=== PATIENT | female | born 1975 | race African-American/Black ===

== ENCOUNTER 2018-12-28 20:12 | Inpatient (IN) ==
[2018-12-28 20:24] VITALS: BMI 37.0
[2018-12-28] MEDS ORDERED: NITROSTAT SL PRN (20:50)
[2018-12-28] MEDS ORDERED: PEPCID TAB 20 MG PO ONE (20:50)
[2018-12-28] MEDS ORDERED: ASPIRIN PO ONE (20:50)
--- NOTE | 2018-12-28 20:50 | DR.SOBA ---
HPI - Time Seen Time seen: 20:46 - Primary Care Physician Primary Care Physician: NFD - Complaints Chief Complaint Doctors Comments: Patient complains of chest pain with SOB for three weeks getting progressively worst today. States she is having sharp xiphoid and left sided chest pain that comes and goes and last about four minutes when she has the pain. She is a patient of Dr. Jarquin and states she is taking Lisinopril for her blood pressure and was suppose to be taking catapres but she cannot afford her medicines. She is complaining of SOB and GARCIA. She denies cold, cough, fever, chills, nausea or vomiting. Chief Complaint:: SHORTNESS OF BREATH AND CHEST PAIN TO LEFT ARM X 1 WEEK; PATIENT STATES SHE IS SUPPOSED TO TAKE LISINOPRIL 20MG BID AND CLONIDINE BUT HAS BEEN NON-COMPLIANT. Self Treatment fo Chief Complaint: NONE - Reviewed Nurses Notes Reviewed: Yes - Source History Provided: Patient - Mode of Arrival Mode of Arrival: Ambulatory - Timing Onset of Chief Complaint: 12/21/18 - Duration Duration: Weeks - Context Onset:: At Rest PE Risk Factors:: None History of:: None Prehospital Care:: None - Modifying Factors Worsens:: Exertion Improves:: Nothing - Associated Signs and Symptoms Associated Signs and Symptoms: None - If Chest Pain Quality: Sharp, Squeezing Location: Substernal - If Cough Cough: None PMH - PMH Past Medical History: Yes Past Medical History: CHF Past Surgical History: Yes Surgical History: - Family History History of Family Medical Conditions: No Family Medical History: Diabetes Mellitus, Hypertension - Social History Does patient currently use any type of tobacco product: No Have you used tobacco products in the last 12 months: No Type of Tobacco Use: None Do you use any recreational Drugs:: No Lives With: Other Lives Where: Home - infectious screening In the last 2 months have you had wt loss of >10#?: NO Have you had fever, night sweats or hemotysis?: No Have you traveled outside the country in the last 6 months?: No Isolation: Standard ROS - Review of Systems Constitutional: No Symptoms Reported Eyes: No Symptoms Reported ENTM: No Symptoms Reported Respiratoy: No Symptoms Reported, Non-Productive Cough, Short of Breath Cardiovascular: No Symptoms Reported, Chest Pain. negative: See HPI, Edema, Palpitations, Syncope, Cyanosis, Skin Mottling, Other Gastrointestinal/Abdominal: No Symptoms Reported Genitourinary: No Symptoms Reported. negative: See HPI, Discharge, Dysuria, Frequency, Hematuria, Pain, Bleeding, Other Neurological: No Symptoms Reported Musculoskeletal: No Symptoms Reported Integumentary: No Symptoms Reported Hematologic/Lymphatic: No Symptoms Reported Endocrine: No Symptoms Reported Psychiatric: No Symptoms Reported PE - General Limitations: No Limitations General Appearance: Alert, In Distress (slight) - Head Head Exam: Normal Inspection, Atraumatic, Normocephalic - Eyes Eye exam: Normal Appearance, PERRL, EOMI. negative: Scleral Icterus, Conjunctival Injection, Nystagmus, Miosis, Mydrasis, Periorbital Swelling, Periorbital Tenderness, Other - ENT ENT Exam: Normal Exam, Normal Oropharynx, Normal External Ear Exam, Mucous Membranes Moist, TM's Normal Bilaterally - Neck Neck Exam: Normal Inspection, Full ROM, Trachea Midline. negative: Tenderness, Meningismus, Lymphadenopathy, Thyromegaly, Other - Chest Chest Inspection: Normal Inspection, Symmetric Chest Wall Rise - Respiratory Respiratory Exam: Normal Lung Sounds Bilat Respiratory Exam: Bilateral Clear to Auscultation - Cardiovascular Cardiovascular Exam: Regular Rate, Normal Rhythm, Normal Heart Sounds - Abdominal Exam Abdominal Exam: Normal Inspection, Normal Bowel Sounds, Soft Abdominal Tenderness: negative: RUQ, RLQ, LUQ, LLQ, Epigastrium, Suprapubic, Diffuse, Mild, Moderate, Severe, Other - Extremities Extremities Exam: Normal Inspection, Full ROM, Normal Capillary Refill. negative: Tenderness, Edema, Joint Swelling, Calf Tenderness, Other - Back Back Exam: Normal Inspection, Full ROM. negative: Tenderness, (R) CVA Tenderness, (L) CVA Tenderness, Muscle Spasm, Paraspinal Tenderness, Vertebral Tenderness, Rashes, (R) Sciatic Notch Tenderness, (L) Sciatic Notch Tendern, (R) Straight Leg Raise, (L) Straight Leg Raise, Other - Neurologic Neurological Exam: Alert, Oriented X3, CN II-XII Intact, Normal Gait, Reflexes Normal - Psychiatric Psychiatric Exam: Normal Affect, Normal Mood. negative: Depressed, Agitated, Anxious, Flat Affect, Manic, Homicidal Ideation, Suicidal Ideation, Other - Skin Skin Exam: Warm, Dry, Intact, Normal Color - Vital Signs Vitals: Temperature 99.4 F Pulse Rate 91 Respiratory Rate 24 Blood Pressure [Left Arm] 158/87 Blood Pressure [Right Arm] 162/91 Blood Pressure 165/77 O2 Sat by Pulse Oximetry 100 Course - Consultation Called: 22:42 Call Returned: 22:42 (Dr. Li to admit) - Education/Counseling Education/Counseling: Patient, Family Educated On: Treatment, Diagnosis, Needs for Follow Up ROR - Labs Reviewed Laboratory Results Reviewed?: Yes (All labs and x-ray results reviewed and discussed with patient and family) Result Diagrams: 12/28/18 20:53 12/28/18 20:53 - XRAY XRAY Interpreted by: Radiologist (CXR: Cardiomegaly without other acute chest process) - EKG Rate: 92 [place]: Normal Rhythm: NSR Block: None Hypertrophy: None ST: Nonsp - Labs Reviewed Laboratory: WBC 10.6 X10^3/uL (3.6-10.0) H 12/28/18 20:53 RBC 4.30 X10^6/uL (3.5-5.4) 12/28/18 20:53 Hgb 5.4 g/dL (12.0-16.0) L* 12/28/18 20:53 Hct 20.9 % (36.0-47.0) L 12/28/18 20:53 MCV 49.3 fL (80.0-100.0) L 12/28/18 20:53 MCH 12.6 pg (27.0-34.0) L 12/28/18 20:53 MCHC 25.5 g/dL (33.0-35.0) L 12/28/18 20:53 RDW 22.9 % (11.6-16.5) H 12/28/18 20:53 Plt Count 459 X10^3/uL (150.0-450.0) H 12/28/18 20:53 Plt Count Comment Increased (ADEQUATE) A 12/28/18 20:53 MPV 8.8 fL (7.4-11.0) 12/28/18 20:53 Neut % (Auto) 70.4 % (42.0-75.0) 12/28/18 20:53 Lymph % (Auto) 22.8 % (21.0-51.0) 12/28/18 20:53 [place] % (Auto) 4.3 % (0.0-13.0) 10/05/19 20:53 Eos % (Auto) 1.5 % (0.9-2.9) 12/28/18 20:53 Baso % (Auto) 1.0 % (0.2-1.0) 12/28/18 20:53 Neut # (Auto) 7.4 x10^3/uL (2.2-4.8) H 12/28/18 20:53 Lymph # (Auto) 2.4 X10^3/uL (1.3-2.9) 12/28/18 20:53 [place] # (Auto) 0.5 x10^3/uL (0.3-0.8) 12/28/18 20:53 Eos # (Auto) 0.2 x10^3/uL (0.0-0.2) 12/28/18 20:53 Baso # (Auto) 0.1 X10^3/uL (0.0-0.1) 12/28/18 20:53 Absolute Nucleated RBC 0.2 /100WBC 12/28/18 20:53 Plt Morphology Comment Normal (NORMAL) 12/28/18 20:53 RBC Morphology Abnormal (NORMAL) A 12/28/18 20:53 Dimorphic RBCs 2+ 12/28/18 20:53 Hypochromasia 3+ A 12/28/18 20:53 Poikilocytosis 2+ A 12/28/18 20:53 Anisocytosis 2+ A 12/28/18 20:53 PT 14.0 SECONDS (11.8-14.3) 12/28/18 20:53 INR Target Range - 12/28/18 20:53 INR 1.12 (0.8-1.3) 12/28/18 20:53 APTT 28.0 SECONDS (22.9-36.5) 12/28/18 20:53 PTT Comment - 12/28/18 20:53 D-Dimer 219 ng/mL (0-400) 12/28/18 20:53 Sodium 141 mmol/L (136-145) 12/28/18 20:53 Corrected Sodium 142 mmol/L (136-145) 12/28/18 20:53 Potassium 2.8 mmol/L (3.5-5.1) L* 12/28/18 20:53 Chloride 103 mmol/L (98-107) 12/28/18 20:53 Carbon Dioxide 24.8 mmol/L (21-32) 12/28/18 20:53 BUN 13 mg/dL (7-18) 12/28/18 20:53 Creatinine 0.81 mg/dL (0.55-1.02) 12/28/18 20:53 Est GFR (MDRD) Af Amer > 60 (>60) 12/28/18 20:53 Est GFR (MDRD) Non-Af > 60 (>60) 12/28/18 20:53 Glucose 155 mg/dL (65-99) H 12/28/18 20:53 Calcium 8.9 mg/dL (8.5-10.1) 12/28/18 20:53 Corrected Calcium TNP 12/28/18 20:53 Magnesium 1.6 mg/dL (1.7-2.9) L 12/28/18 20:53 Total Bilirubin 0.50 mg/dL (0.2-1.0) 12/28/18 20:53 AST 9 Units/L (15-37) L 12/28/18 20:53 ALT 12 Units/L (12-78) 12/28/18 20:53 Alkaline Phosphatase 55 Units/L (46-116) 12/28/18 20:53 Creatine Kinase 94 Units/L (26-192) 12/28/18 20:53 CK-MB (CK-2) 1.6 ng/mL (0-4.0) 12/28/18 20:53 CK/CKMB % Calc 1.7 % (<4) 12/28/18 20:53 Troponin I 0.77 ng/mL (0-1.5) 12/28/18 20:53 Total Protein 8.0 g/dL (6.4-8.2) 12/28/18 20:53 Albumin 3.6 g/dL (3.4-5.0) 12/28/18 20:53 Globulin 4.4 g/dL (2.5-4.5) 12/28/18 20:53 Albumin/Globulin Ratio 0.8 Ratio (1.1-2.1) L 12/28/18 20:53 Stool Description Fob tube 12/28/18 21:59 Stl Occult Blood (IFOB) Negative (NEGATIVE) 12/28/18 21:59 Opioid - Opioid Risk Tool Total: 0 Total Score Risk Category: Low Risk - Diagnosis Discharge Problem: Symptomatic anemia, Hypokalemia, Hyperglycemia, Essential hypertension, Cardiomegaly Chest pain Qualifiers: Ischemic chest pain type: unspecified angina pectoris type - Discharge Plan Disposition: ADMITTED INPATIENT Condition: Stable - Follow ups/Referrals Follow ups/Referrals: NFD,None [Primary Care Provider] - 3 days - Instructions
[2018-12-28 21:18] LABS: BASOPHILS # (AUTO) 0.1 X10^3/uL (0.0-0.1); EOSINOPHILS # (AUTO) 0.2 x10^3/uL (0.0-0.2); EOSINOPHILS % (AUTO) 1.5 % (0.9-2.9); LYMPHOCYTES # (AUTO) 2.4 X10^3/uL (1.3-2.9); LYMPHOCYTES % (AUTO) 22.8 % (21.0-51.0); MEAN CORPUSCULAR HEMOGLOBIN 12.6 pg (27.0-34.0); MEAN CORPUSCULAR HGB CONC 25.5 g/dL (33.0-35.0); MEAN CORPUSCULAR VOLUME 49.3 fL (80.0-100.0); MEAN PLATELET VOLUME 8.8 fL (7.4-11.0); MONOCYTES # (AUTO) 0.5 x10^3/uL (0.3-0.8); MONOCYTES % (AUTO) 4.3 % (0.0-13.0); NEUTROPHILS # (AUTO) 7.4 x10^3/uL (2.2-4.8); NEUTROPHILS % (AUTO) 70.4 % (42.0-75.0); PLATELET COUNT 459 X10^3/uL (150.0-450.0); RED CELL DISTRIBUTION WIDTH 22.9 % (11.6-16.5); WHITE BLOOD COUNT 10.6 X10^3/uL (3.6-10.0)
[2018-12-28] MEDS ORDERED: ASPIRIN 81 MG CHEWTAB ONE (21:18)
[2018-12-28] MEDS ORDERED: PEPCID TAB 20 MG ONE (21:18)
[2018-12-28 21:26] LABS: ALANINE AMINOTRANSFERASE 12 Units/L (12-78); ALBUMIN 3.6 g/dL (3.4-5.0); ALKALINE PHOSPHATASE 55 Units/L (46-116); ASPARTATE AMINO TRANSFERASE 9 Units/L (15-37); BLOOD UREA NITROGEN 13 mg/dL (7-18); CALCIUM 8.9 mg/dL (8.5-10.1); CARBON DIOXIDE 24.8 mmol/L (21-32); CHLORIDE 103 mmol/L (98-107); CKMB % 1.7 % (<4); COR NA(FOR HYPERGLY) 142 mmol/L (136-145); CREATINE KINASE 94 Units/L (26-192); CREATINE KINASE MB 1.6 ng/mL (0-4.0); CREATININE 0.81 mg/dL (0.55-1.02); MAGNESIUM 1.6 mg/dL (1.7-2.9); SODIUM 141 mmol/L (136-145); TROPONIN I 0.77 ng/mL (0-1.5); eGFR NON BLACK RACES > 60 (>60)
[2018-12-28 21:33] LABS: HEMATOCRIT 20.9 % (36.0-47.0)
[2018-12-28 21:35] LABS: HEMOGLOBIN 5.4 g/dL (12.0-16.0)
[2018-12-28 21:39] LABS: HYPOCHROMASIA 3+; PLATELET MORPHOLOGY COMMENT NORMAL (NORMAL); POIKILOCYTOSIS 2+
[2018-12-28 21:40] LABS: ANISOCYTOSIS 2+
[2018-12-28] MEDS ORDERED: K-LYTE EFFERVESCENT PO STA (21:41)
--- NOTE | 2018-12-28 21:43 | RAD ---
Chest AP portable Indication: Chest pain Comparison: 01/20/2015 radiograph Findings: Monitoring leads obscure minimal detail. There is no pneumothorax or effusion. There is no consolidation. Heart size is prominent. Impression: Cardiomegaly without other acute chest process. Reported By:
[2018-12-28] MEDS ORDERED: K-LYTE EFFERVESCENT ONE (21:44)
[2018-12-29 00:21] LABS: CKMB % 1.6 % (<4); CREATINE KINASE MB 1.3 ng/mL (0-4.0); TROPONIN I 0.92 ng/mL (0-1.5)
[2018-12-29] MEDS ORDERED: NS 250 ML IV 250 ML IV ONE ×2 (01:14→12:31)
[2018-12-29] MEDS: COLACE CAP 100 MG PO SCH ×2 (08:51→21:39)
[2018-12-29] MEDS: MILK OF MAGNESIA PO SCH ×2 (08:51→21:40)
[2018-12-29 10:52] LABS: BASOPHILS # (AUTO) 0.1 X10^3/uL (0.0-0.1); EOSINOPHILS % (AUTO) 1.9 % (0.9-2.9)
[2018-12-29 11:05] LABS: ALANINE AMINOTRANSFERASE 11 Units/L (12-78); ALBUMIN 3.5 g/dL (3.4-5.0); ALKALINE PHOSPHATASE 55 Units/L (46-116); ASPARTATE AMINO TRANSFERASE 10 Units/L (15-37); BLOOD UREA NITROGEN 10 mg/dL (7-18); CALCIUM 8.8 mg/dL (8.5-10.1); CARBON DIOXIDE 26.6 mmol/L (21-32); CHLORIDE 104 mmol/L (98-107); CHOLESTEROL 128 mg/dL (0-200); CKMB % 1.9 % (<4); COR NA(FOR HYPERGLY) 142 mmol/L (136-145); CREATINE KINASE 65 Units/L (26-192); CREATINE KINASE MB 1.2 ng/mL (0-4.0); CREATININE 0.61 mg/dL (0.55-1.02); HDL CHOLESTEROL 32 mg/dL (40-60); SODIUM 141 mmol/L (136-145); TOTAL PROTEIN 7.8 g/dL (6.4-8.2); TRIGLYCERIDES 54 mg/dL (0-150); TROPONIN I 0.75 ng/mL (0-1.5); eGFR NON BLACK RACES > 60 (>60)
[2018-12-29] MEDS ORDERED: POTASSIUM CHL 60 MEQ/NS 0.45% 500 ML IV PRN (11:18)
[2018-12-29] MEDS ORDERED: KLOR-CON PO PRN (11:18)
[2018-12-29] MEDS ORDERED: MICRO K EXTEN CAP 10 MEQ PO PRN (11:18)
[2018-12-29] MEDS ORDERED: K-RIDER 10 MEQ/NS 100 ML 10 MEQ/100 ML BAG IV PRN (11:18)
[2018-12-29] MEDS ORDERED: POTASSIUM CHLORIDE LIQ 20 MEQ UDC PO PRN (11:18)
[2018-12-29] MEDS ORDERED: POTASSIUM CHL 40 MEQ/NS 0.45% 500 ML IV PRN (11:18)
[2018-12-29] MEDS ORDERED: K-DUR TAB 20 MEQ PO ONE (11:23)
[2018-12-29] MEDS: K-DUR TAB 20 MEQ PO PRN ×2 (11:25→11:26)
--- NOTE | 2018-12-29 12:07 | DR.H&P ---
H&P - History & Physical for Day of: H&P Date: 12/29/18 - Chief Complaint Chief Complaint: SOB, CP - History of Present Illness History of Present Illness: 43BF ER admission with patient complains of chest pain with SOB for three weeks getting progressively worst today. States she is having sharp xiphoid and left sided chest pain that comes and goes and last about four minutes when she has the pain. She is a patient of Dr. Jarquin and stat es she is taking Lisinopril for her blood pressure and was suppose to be taking catapres but she cannot afford her medicines. She is complaining of SOB and GARCIA. She denies cold, cough, fever, chills, nausea or vomiting. Pt has PMH of heavy monthly menses and anemia. Pt HGB 5.4, K2.8. Pt admitted for treatment and evaluation of acute illness - Past Medical History Past Medical History: Anemia, CHF, Hypertension - Past Surgical History Surgical History: - Family History Family Medical History: Diabetes Mellitus, PA, Coronary Artery Disease, Sudden Cardiac , Hypertension - Social History Does patient currently use any type of tobacco product: No Have you used tobacco products in the last 12 months: No Type of Tobacco Use: None Alcohol Use: None Drug Use: None - Medications Home Medications: No Known Drug Allergies Allergy (Verified 12/28/18 20:32) CONTINUE taking the following medications NK 12/29/18 [History] - Review of Systems Constitutional: Weakness Eyes: No Symptoms Reported ENT: No Symptoms Reported Respiratory: SOB with Excertion Cardiovascular: Chest Pain, Palpitations Gastrointestinal: No Symptoms Reported Genitourinary: No Symptoms Reported Musculoskeletal: No Symptoms Reported Skin: No Symptoms Reported Neurological: No Symptoms Reported - Physical Exam Vital Signs: Temperature 98.9 F Pulse Rate [Left Brachial] 82 Pulse Rate 96 Respiratory Rate 20 Blood Pressure [Left Arm] 149/77 Blood Pressure [Right Arm] 162/91 Blood Pressure 127/59 O2 Sat by Pulse Oximetry 100 Oriented: Normal Eyes: Normal Ear: Normal Nose: Normal Throat: Normal Respiratory: RLL Diminished, LLL Diminished Cardiovascular: Normal : Normal Auscultation: Bowel Sounds: Normal Palpation: Normal Tenderness: Normal Skin: Normal Musculoskeletal: Normal Psychiatric: Normal Mood Description: Calm Speech Pattern: Clear, Appropriate - Assessment/Plan (1) Symptomatic anemia Status: Acute Plan: ADMIT, TYPE CROSS, TRANFUSE 2 U PRBCS. ANEMIA PANEL, EKG MONITORING, PRN SUPPLEMENTAL O2. GENTLE IV HYDRATION. VERIFY HOME MEDICATION. MONITOR H&H, BP CONTROL (2) Chest pain Qualifiers: Ischemic chest pain type: unspecified angina pectoris type Status: Acute (3) Essential hypertension Status: Acute (4) Shortness of breath Status: Acute - Allergies Allergies/Adverse Reactions: Allergies Allergy/AdvReac Type Severity Reaction Status Date / Time No Known Drug Allergies Allergy Verified 12/28/18 20:32
[2018-12-29 12:12] LABS: BASOPHILS % (AUTO) 1.1 % (0.2-1.0); EOSINOPHILS # (AUTO) 0.1 x10^3/uL (0.0-0.2); HEMATOCRIT 26.6 % (36.0-47.0); HEMOGLOBIN 7.5 g/dL (12.0-16.0); LYMPHOCYTES # (AUTO) 1.9 X10^3/uL (1.3-2.9); LYMPHOCYTES % (AUTO) 26.4 % (21.0-51.0); MEAN CORPUSCULAR HGB CONC 28.2 g/dL (33.0-35.0); MEAN CORPUSCULAR VOLUME 56.5 fL (80.0-100.0); MEAN PLATELET VOLUME 8.5 fL (7.4-11.0); MONOCYTES # (AUTO) 0.4 x10^3/uL (0.3-0.8); MONOCYTES % (AUTO) 5.1 % (0.0-13.0); NEUTROPHILS # (AUTO) 4.8 x10^3/uL (2.2-4.8); NEUTROPHILS % (AUTO) 65.5 % (42.0-75.0); PLATELET COUNT 379 X10^3/uL (150.0-450.0); RED BLOOD COUNT 4.71 X10^6/uL (3.5-5.4); RED CELL DISTRIBUTION WIDTH 34.1 % (11.6-16.5); WHITE BLOOD COUNT 7.4 X10^3/uL (3.6-10.0)
--- NOTE | 2018-12-29 12:12 | PCM.PROG ---
Progress Note - Progress Note for Day of Date of Exam: 12/29/18 - Subjective Subjective: 43BF ER ADMISSION WITH SYMPTOMATIC ANEMIA, FE DEFICIENT, CP. PT S/P TRANSFUSION 2 U PRBC. PT REPEAT H&H PENDING. PT HAS SERIAL CE AND EKG. PT STATES SHE IS FEELING A LITTLE BETTER THIS AM. PT FE 10, PLAN TO ADMINISTER IV IRON INFUSION, REPEAT H&H, CONTINUE BP CONTROL AND CARDIAC MONITORING - Past Medical Family Social History Past Med/Fam/Surg Hx: No changes since H&P Allergies: Allergies No Known Drug Allergies Allergy (Verified 12/28/18 20:32) - Review of Systems ROS: No change since H&P - Vital Signs and I&O's Vital Signs: Temperature 98.3 F Pulse Rate [Left Brachial] 81 Pulse Rate 96 Respiratory Rate 20 Blood Pressure [Left Arm] 142/98 Blood Pressure [Right Arm] 162/91 Blood Pressure 127/59 O2 Sat by Pulse Oximetry 96 Intake and Output: Intake & Output 12/27/18 12/28/18 12/29/18 12/30/18 11:59 11:59 11:59 11:59 Intake Total 50 / 50 Balance 50 / 50 - Physical Exam Oriented: Normal Eyes: Normal Ear: Normal Nose: Normal Throat: Normal Respiratory: Normal Cardiovascular: Normal : Normal Auscultation: Bowel Sounds: Normal Tenderness: Normal Skin: Normal Musculoskeletal: Normal Psychiatric: Normal Mood Description: Calm Speech Pattern: Clear, Appropriate - Laboratory and Diagnostics Result Diagrams: 12/28/18 20:53 12/29/18 10:00 Labs: Laboratory WBC 10.6 X10^3/uL (3.6-10.0) H 12/28/18 20:53 RBC 4.30 X10^6/uL (3.5-5.4) 12/28/18 20:53 Hgb 5.4 g/dL (12.0-16.0) L* 12/28/18 20:53 Hct 20.9 % (36.0-47.0) L 12/28/18 20:53 MCV 49.3 fL (80.0-100.0) L 12/28/18 20:53 MCH 12.6 pg (27.0-34.0) L 12/28/18 20:53 MCHC 25.5 g/dL (33.0-35.0) L 12/28/18 20:53 RDW 22.9 % (11.6-16.5) H 12/28/18 20:53 Plt Count 459 X10^3/uL (150.0-450.0) H 12/28/18 20:53 Plt Count Comment Increased (ADEQUATE) A 12/28/18 20:53 MPV 8.8 fL (7.4-11.0) 12/28/18 20:53 Neut % (Auto) 70.4 % (42.0-75.0) 12/28/18 20:53 Lymph % (Auto) 22.8 % (21.0-51.0) 12/28/18 20:53 [place] % (Auto) 4.3 % (0.0-13.0) 12/28/18 20:53 Eos % (Auto) 1.5 % (0.9-2.9) 12/28/18 20:53 Baso % (Auto) 1.0 % (0.2-1.0) 12/28/18 20:53 Neut # (Auto) 7.4 x10^3/uL (2.2-4.8) H 12/28/18 20:53 Lymph # (Auto) 2.4 X10^3/uL (1.3-2.9) 12/28/18 20:53 [place] # (Auto) 0.5 x10^3/uL (0.3-0.8) 12/28/18 20:53 Eos # (Auto) 0.2 x10^3/uL (0.0-0.2) 12/28/18 20:53 Baso # (Auto) 0.1 X10^3/uL (0.0-0.1) 12/28/18 20:53 Absolute Nucleated RBC 0.2 /100WBC 12/28/18 20:53 Plt Morphology Comment Normal (NORMAL) 12/28/18 20:53 RBC Morphology Abnormal (NORMAL) A 12/28/18 20:53 Dimorphic RBCs 2+ 12/28/18 20:53 Hypochromasia 3+ A 12/28/18 20:53 Poikilocytosis 2+ A 12/28/18 20:53 Anisocytosis 2+ A 12/28/18 20:53 PT 14.0 SECONDS (11.8-14.3) 12/28/18 20:53 INR Target Range - 12/28/18 20:53 INR 1.12 (0.8-1.3) 12/28/18 20:53 APTT 28.0 SECONDS (22.9-36.5) 12/28/18 20:53 PTT Comment - 12/28/18 20:53 D-Dimer 219 ng/mL (0-400) 12/28/18 20:53 Sodium 141 mmol/L (136-145) 12/29/18 10:00 Corrected Sodium 142 mmol/L (136-145) 12/29/18 10:00 Potassium 3.4 mmol/L (3.5-5.1) L 12/29/18 10:00 Chloride 104 mmol/L (98-107) 12/29/18 10:00 Carbon Dioxide 26.6 mmol/L (21-32) 12/29/18 10:00 BUN 10 mg/dL (7-18) 12/29/18 10:00 Creatinine 0.61 mg/dL (0.55-1.02) 12/29/18 10:00 Est GFR (MDRD) Af Amer > 60 (>60) 12/29/18 10:00 Est GFR (MDRD) Non-Af > 60 (>60) 12/29/18 10:00 Glucose 132 mg/dL (65-99) H 12/29/18 10:00 Calcium 8.8 mg/dL (8.5-10.1) 12/29/18 10:00 Corrected Calcium TNP 12/29/18 10:00 Magnesium 1.8 mg/dL (1.7-2.9) 12/29/18 10:00 Iron 10 ug/dL (50-175) L 12/28/18 20:53 Transferrin 312 mg/dL (202-364) 12/28/18 20:53 Ferritin 2 ng/mL (8-252) L 12/28/18 20:53 Total Bilirubin 1.40 mg/dL (0.2-1.0) H 12/29/18 10:00 AST 10 Units/L (15-37) L 12/29/18 10:00 ALT 11 Units/L (12-78) L 12/29/18 10:00 Alkaline Phosphatase 55 Units/L (46-116) 12/29/18 10:00 Creatine Kinase 65 Units/L (26-192) 12/29/18 10:00 CK-MB (CK-2) 1.2 ng/mL (0-4.0) 12/29/18 10:00 CK/CKMB % Calc 1.9 % (<4) 12/29/18 10:00 Troponin I 0.75 ng/mL (0-1.5) 12/29/18 10:00 Total Protein 7.8 g/dL (6.4-8.2) 12/29/18 10:00 Albumin 3.5 g/dL (3.4-5.0) 12/29/18 10:00 Globulin 4.3 g/dL (2.5-4.5) 12/29/18 10:00 Albumin/Globulin Ratio 0.8 Ratio (1.1-2.1) L 12/29/18 10:00 Triglycerides 54 mg/dL (0-150) 12/29/18 10:00 Cholesterol 128 mg/dL (0-200) 12/29/18 10:00 LDL Cholesterol, Calc 85 mg/dL (0-100) 12/29/18 10:00 HDL Cholesterol 32 mg/dL (40-60) L 12/29/18 10:00 Cholesterol/HDL Ratio 4.0 (0.0-5.0) 12/29/18 10:00 Vitamin B12 343 pg/mL (193-986) 12/28/18 20:53 Folate 13.0 ng/mL (>8.6) 12/28/18 20:53 Stool Description Fob tube 12/28/18 21:59 Stl Occult Blood (IFOB) Negative (NEGATIVE) 12/28/18 21:59 Blood Type O POSITIVE 12/28/18 21:40 Antibody Screen Negative 12/28/18 21:40 Crossmatch See Detail 12/28/18 21:40 - Plan (1) Symptomatic anemia Status: Acute Plan: TYPE CROSS, TRANFUSE 2 U PRBCS. ANEMIA PANEL, EKG MONITORING, PRN SUPPLEMENTAL O2. GENTLE IV HYDRATION. VERIFY HOME MEDICATION. MONITOR H&H, BP CONTROL (2) Chest pain Status: Acute Qualifiers: Ischemic chest pain type: unspecified angina pectoris type (3) Hypokalemia Status: Acute Plan: REPEAT K 3.4, CONTINUE TO MONITOR (4) Essential hypertension Status: Acute (5) Shortness of breath Status: Acute
[2018-12-29 12:39] LABS: GIANT PLATELET FEW
[2018-12-29 12:40] LABS: ANISOCYTOSIS 3+; HYPOCHROMASIA 3+; MICROCYTOSIS 3+; PLATELET MORPHOLOGY COMMENT ABNORMAL (NORMAL)
[2018-12-29 12:41] LABS: POIKILOCYTOSIS 1+; TEAR DROP CELLS SLIGHT
[2018-12-29] MEDS ORDERED: DEXFERRUM or INFED 975 MG in NS 500 ML IV 500 ML IV ONE (13:00)
[2018-12-29] MEDS ORDERED: PHARMACY CONSULT - DOSE _____ XX SCH (13:00)
[2018-12-29] MEDS ORDERED: DEXFERRUM or INFED 25 MG in NS 100 ML IV 100 ML IV ONE (13:00)
[2018-12-29 16:48] LABS: CKMB % 1.6 % (<4); CREATINE KINASE 62 Units/L (26-192); CREATINE KINASE MB < 1.0 ng/mL (0-4.0); TROPONIN I 0.66 ng/mL (0-1.5)
[2018-12-30 06:03] LABS: BASOPHILS # (AUTO) 0.1 X10^3/uL (0.0-0.1); BASOPHILS % (AUTO) 0.9 % (0.2-1.0); EOSINOPHILS # (AUTO) 0.2 x10^3/uL (0.0-0.2); EOSINOPHILS % (AUTO) 2.3 % (0.9-2.9); HEMATOCRIT 25.4 % (36.0-47.0); HEMOGLOBIN 7.3 g/dL (12.0-16.0); LYMPHOCYTES # (AUTO) 2.5 X10^3/uL (1.3-2.9); LYMPHOCYTES % (AUTO) 23.9 % (21.0-51.0); MEAN CORPUSCULAR HEMOGLOBIN 16.2 pg (27.0-34.0); MEAN CORPUSCULAR HGB CONC 28.6 g/dL (33.0-35.0); MEAN CORPUSCULAR VOLUME 56.8 fL (80.0-100.0); MEAN PLATELET VOLUME 8.4 fL (7.4-11.0); MONOCYTES # (AUTO) 0.4 x10^3/uL (0.3-0.8); MONOCYTES % (AUTO) 3.4 % (0.0-13.0); NEUTROPHILS # (AUTO) 7.3 x10^3/uL (2.2-4.8); NEUTROPHILS % (AUTO) 69.5 % (42.0-75.0); PLATELET COUNT 322 X10^3/uL (150.0-450.0); RED BLOOD COUNT 4.47 X10^6/uL (3.5-5.4); RED CELL DISTRIBUTION WIDTH 34.1 % (11.6-16.5); WHITE BLOOD COUNT 10.4 X10^3/uL (3.6-10.0)
[2018-12-30 06:20] LABS: ALANINE AMINOTRANSFERASE 7 Units/L (12-78); ALBUMIN 3.1 g/dL (3.4-5.0); ALKALINE PHOSPHATASE 54 Units/L (46-116); BLOOD UREA NITROGEN 7 mg/dL (7-18); CALCIUM 8.3 mg/dL (8.5-10.1); CARBON DIOXIDE 22.9 mmol/L (21-32); CHLORIDE 106 mmol/L (98-107); COR NA(FOR HYPERGLY) 141 mmol/L (136-145); CREATININE 0.57 mg/dL (0.55-1.02); SODIUM 140 mmol/L (136-145); TOTAL PROTEIN 7.1 g/dL (6.4-8.2); eGFR NON BLACK RACES > 60 (>60)
[2018-12-30 06:47] LABS: ASPARTATE AMINO TRANSFERASE 19 Units/L (15-37)
[2018-12-30 07:08] LABS: PLATELET MORPHOLOGY COMMENT NORMAL (NORMAL)
[2018-12-30 07:09] LABS: ANISOCYTOSIS 3+; HYPOCHROMASIA 3+; MICROCYTOSIS 3+
[2018-12-30] MEDS ORDERED: MAGNESIUM SULFATE 1 GRAM/100 mL PREMIX 2 G/200 ML BAG IV ONE (07:16)
[2018-12-30] MEDS: MAGNESIUM SULFATE 1 GRAM/100 mL PREMIX 1 GM/100 ML BAG IV PRN ×2 (07:41→09:14)
[2018-12-30] MEDS ORDERED: NS 250 ML IV 250 ML IV ONE ×2 (07:52→12:14)
[2018-12-30] MEDS: MILK OF MAGNESIA PO SCH (08:12)
[2018-12-30] MEDS: COLACE CAP 100 MG PO SCH (08:12)
[2018-12-30] MEDS: K-DUR TAB 20 MEQ PO PRN (08:14)
[2018-12-30 08:47] LABS: CKMB % 1.5 % (<4); CREATINE KINASE 65 Units/L (26-192); CREATINE KINASE MB < 1.0 ng/mL (0-4.0); TROPONIN I 0.42 ng/mL (0-1.5)
[2018-12-30] MEDS ORDERED: ZESTRIL TAB 10 MG PO SCH (09:00)
[2018-12-30] MEDS ORDERED: HEMOCYTE-PLUS PO SCH (09:00)
--- NOTE | 2018-12-30 10:37 | RAD ---
HISTORY: Chest pains Study: Single-view chest Comparison: 12/28/2018. Findings: Trachea is midline. There is cardiomegaly with aortic uncoiling. Lungs and pleural spaces are clear. Osseous structures are intact. IMPRESSION: Cardiomegaly with aortic uncoiling. Clear lungs and pleural spaces. Reported By:
[2018-12-30 16:37] VITALS: BP 165/91
[2018-12-30] MEDS ORDERED: GLUCOPHAGE PO SCH (17:00)
[2018-12-30 17:26] LABS: HEMATOCRIT 30.9 % (36.0-47.0); HEMOGLOBIN 8.8 g/dL (12.0-16.0)
--- NOTE | 2018-12-30 17:28 | PCM.PROG ---
Progress Note - Progress Note for Day of Date of Exam: 12/30/18 - Subjective Subjective: 43BF ER ADMISSION WITH SYMPTOMATIC ANEMIA, FE DEFICIENT, CP. PT S/P TRANSFUSION 2 U PRBC. HGB 7.3. PT STATES SHE IS FEELING BETTER THIS AM, ASKING IF SHE CAN GO HOME TODAY. PLAN TO TRANSFUSE 3 RD UNIT PRBC THEN REPEAT H&H. POSSIBLE D/C THIS AFTERNOON. PT FE WAS 10, SHE RECEIVED IV IRON INFUSION AND STARTED ON HEMOCYTE PLUS PO. PT WAS ENCOURAGED TO FOLLOW UP WITH PCP, PARAPROFESSIONAL INTERPRETER AND CARDIOLOGY ON OUTPT BASIS AND PT AGREED. CXR WAS CLEAR WITHOUT EFFUSIONS OR INFILTRATES. - Past Medical Family Social History Past Med/Fam/Surg Hx: No changes since H&P Allergies: Allergies No Known Drug Allergies Allergy (Verified 12/28/18 20:32) - Review of Systems ROS: No change since H&P - Vital Signs and I&O's Vital Signs: Temperature 98.5 F Pulse Rate [Left Brachial] 86 Pulse Rate 96 Respiratory Rate 18 Blood Pressure [Left Arm] 165/91 Blood Pressure [Right Arm] 162/91 Blood Pressure 127/59 O2 Sat by Pulse Oximetry 99 Intake and Output: Intake & Output 12/28/18 12/29/18 12/30/18 12/31/18 11:59 11:59 11:59 11:59 Intake Total 50 / 50 2780 / 2780 830 / 830 Balance 50 / 50 2780 / 2780 830 / 830 - Physical Exam Oriented: Normal Eyes: Normal Ear: Normal Nose: Normal Throat: Normal Respiratory: Normal Cardiovascular: Normal : Normal Auscultation: Bowel Sounds: Normal Tenderness: Normal Skin: Normal Musculoskeletal: Normal Psychiatric: Normal Mood Description: Calm Speech Pattern: Clear, Appropriate - Laboratory and Diagnostics Result Diagrams: 12/30/18 05:40 12/30/18 05:40 Labs: Laboratory WBC 10.4 X10^3/uL (3.6-10.0) H 12/30/18 05:40 RBC 4.47 X10^6/uL (3.5-5.4) 12/30/18 05:40 Hgb 7.3 g/dL (12.0-16.0) L 12/30/18 05:40 Hct 25.4 % (36.0-47.0) L 12/30/18 05:40 MCV 56.8 fL (80.0-100.0) L 12/30/18 05:40 MCH 16.2 pg (27.0-34.0) L 12/30/18 05:40 MCHC 28.6 g/dL (33.0-35.0) L 12/30/18 05:40 RDW 34.1 % (11.6-16.5) H 12/30/18 05:40 Plt Count 322 X10^3/uL (150.0-450.0) 12/30/18 05:40 Plt Count Comment Adequate (ADEQUATE) 12/30/18 05:40 MPV 8.4 fL (7.4-11.0) 12/30/18 05:40 Neut % (Auto) 69.5 % (42.0-75.0) 12/30/18 05:40 Lymph % (Auto) 23.9 % (21.0-51.0) 12/30/18 05:40 [place] % (Auto) 3.4 % (0.0-13.0) 12/30/18 05:40 Eos % (Auto) 2.3 % (0.9-2.9) 12/30/18 05:40 Baso % (Auto) 0.9 % (0.2-1.0) 12/30/18 05:40 Neut # (Auto) 7.3 x10^3/uL (2.2-4.8) H 12/30/18 05:40 Lymph # (Auto) 2.5 X10^3/uL (1.3-2.9) 12/30/18 05:40 [place] # (Auto) 0.4 x10^3/uL (0.3-0.8) 12/30/18 05:40 Eos # (Auto) 0.2 x10^3/uL (0.0-0.2) 12/30/18 05:40 Baso # (Auto) 0.1 X10^3/uL (0.0-0.1) 12/30/18 05:40 Absolute Nucleated RBC 0.1 /100WBC 12/30/18 05:40 Giant Platelets Few 12/29/18 11:50 Plt Morphology Comment Normal (NORMAL) 12/30/18 05:40 RBC Morphology Abnormal (NORMAL) A 12/30/18 05:40 Dimorphic RBCs Noted 12/30/18 05:40 Hypochromasia 3+ A 12/30/18 05:40 Poikilocytosis 1+ A 12/29/18 11:50 Anisocytosis 3+ A 12/30/18 05:40 Microcytosis 3+ A 12/30/18 05:40 Tear Drop Cells Slight A 12/29/18 11:50 PT 14.0 SECONDS (11.8-14.3) 12/28/18 20:53 INR Target Range - 12/28/18 20:53 INR 1.12 (0.8-1.3) 12/28/18 20:53 APTT 28.0 SECONDS (22.9-36.5) 12/28/18 20:53 PTT Comment - 12/28/18 20:53 D-Dimer 219 ng/mL (0-400) 12/28/18 20:53 Sodium 140 mmol/L (136-145) 12/30/18 05:40 Corrected Sodium 141 mmol/L (136-145) 12/30/18 05:40 Potassium 3.5 mmol/L (3.5-5.1) 12/30/18 05:40 Chloride 106 mmol/L (98-107) 12/30/18 05:40 Carbon Dioxide 22.9 mmol/L (21-32) 12/30/18 05:40 BUN 7 mg/dL (7-18) 12/30/18 05:40 Creatinine 0.57 mg/dL (0.55-1.02) 12/30/18 05:40 Est GFR (MDRD) Af Amer > 60 (>60) 12/30/18 05:40 Est GFR (MDRD) Non-Af > 60 (>60) 12/30/18 05:40 Glucose 144 mg/dL (65-99) H 12/30/18 05:40 Hemoglobin A1c 6.0 % 12/30/18 05:40 Calcium 8.3 mg/dL (8.5-10.1) L 12/30/18 05:40 Corrected Calcium 9.0 mg/dL (8.5-10.1) 12/30/18 05:40 Magnesium 1.8 mg/dL (1.7-2.9) 12/29/18 10:00 Iron 10 ug/dL (50-175) L 12/28/18 20:53 Transferrin 312 mg/dL (202-364) 12/28/18 20:53 Ferritin 2 ng/mL (8-252) L 12/28/18 20:53 Total Bilirubin 0.60 mg/dL (0.2-1.0) 12/30/18 05:40 AST 19 Units/L (15-37) 12/30/18 05:40 ALT 7 Units/L (12-78) L 12/30/18 05:40 Alkaline Phosphatase 54 Units/L (46-116) 12/30/18 05:40 Creatine Kinase 65 Units/L (26-192) 12/30/18 08:10 CK-MB (CK-2) < 1.0 ng/mL (0-4.0) 12/30/18 08:10 CK/CKMB % Calc 1.5 % (<4) 12/30/18 08:10 Troponin I 0.42 ng/mL (0-1.5) 12/30/18 08:10 Total Protein 7.1 g/dL (6.4-8.2) 12/30/18 05:40 Albumin 3.1 g/dL (3.4-5.0) L 12/30/18 05:40 Globulin 4.0 g/dL (2.5-4.5) 12/30/18 05:40 Albumin/Globulin Ratio 0.8 Ratio (1.1-2.1) L 12/30/18 05:40 Triglycerides 54 mg/dL (0-150) 12/29/18 10:00 Cholesterol 128 mg/dL (0-200) 12/29/18 10:00 LDL Cholesterol, Calc 85 mg/dL (0-100) 12/29/18 10:00 HDL Cholesterol 32 mg/dL (40-60) L 12/29/18 10:00 Cholesterol/HDL Ratio 4.0 (0.0-5.0) 12/29/18 10:00 Vitamin B12 343 pg/mL (193-986) 12/28/18 20:53 Folate 13.0 ng/mL (>8.6) 12/28/18 20:53 Stool Description Fob tube 12/28/18 21:59 Stl Occult Blood (IFOB) Negative (NEGATIVE) 10/05/19 21:59 Blood Type O POSITIVE 12/28/18 21:40 Antibody Screen Negative 12/28/18 21:40 Crossmatch See Detail 12/28/18 21:40 - Plan (1) Symptomatic anemia Status: Acute Plan: S/P 2 U PRBCS, WILL TRANSFUSE 3U PRBC TODAY. ANEMIA PANEL REVIEWED WITH PT AND STARTED ON PO IRON REPLACEMENT, EKG MONITORING, PRN SUPPLEMENTAL O2. GENTLE IV HYDRATION. MONITOR H&H, BP CONTROL (2) Chest pain Status: Resolved Qualifiers: Ischemic chest pain type: unspecified angina pectoris type (3) Hypokalemia Status: Acute Plan: REPEAT K 3.4, CONTINUE TO MONITOR (4) Essential hypertension Status: Acute (5) Shortness of breath Status: Resolved (6) Menorrhagia Status: Acute Plan: F/U WITH PARAPROFESSIONAL INTERPRETER ON OUTPT BASIS
[2018-12-30] MEDS ORDERED: GLUCOPHAGE ONE (17:46)
== END 2018-12-30 18:10 | disposition home or self-care (01) | DRG 812 ==
LOC: ER 20:12 → MED/SURG 23:39
PROVIDERS: ADMIT Internal Medicine; ATTEND Internal Medicine
DX: R06.02 Shortness of breath; I10 Essential (primary) hypertension; N92.0 Excessive and frequent menstruation with regular cycle; I51.7 Cardiomegaly; E87.6 Hypokalemia; D50.8 Other iron deficiency anemias; R07.89 Other chest pain; E11.65 Type 2 diabetes mellitus with hyperglycemia
CPT/HCPCS: 36415; 36430; 71010; 71045; 80053; 80061; 82270; 82550; 82553; 82607; 82728; 82746; 83036; 83540; 83735; 84466; 84484; 85014; 85018; 85025; 85378; 85610; 85730; 86850; 86900; 86901; 86922; 93005; 94760; 96365; 99284; A4216; A4222; P9016; J1750; J3475; J7040; J7050; J8499

== ENCOUNTER 2019-12-05 08:11 | Inpatient (IN) ==
--- NOTE | 2019-12-05 08:15 | DR.CP ---
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 Gradual onset, upper sternal area, squeezing like, non radiating, constant, w/o relieving/ provoking factors a/w SOB, diaphoresis and 1 episode of vomiting. No abd pain, back pain, f/c, cough/ cold/ congestion, LE swelling/ pain. No syncope or palpitations. PMH PMH Past Medical History: Anemia, Angina, CHF, Coronary Artery Disease, Diabetes and Hypertension Past Surgical History: Yes Surgical History: Family History Family Medical History: Diabetes Mellitus, [place], Coronary Artery Disease, Sudden Cardiac and Hypertension Social History Does patient currently use any type of tobacco product: No Alcohol Use: None Do you use any recreational Drugs:: No Lives With: Family Lives Where: Home ROS Review of Systems Constitutional: No Symptoms Reported Eyes: No Symptoms Reported ENTM: No Symptoms Reported Respiratoy: No Symptoms Reported Cardiovascular: Chest Pain; negative Edema, Palpitations, Syncope and Cyanosis Gastrointestinal/Abdominal: Nausea and Vomiting; negative Abdominal Pain Genitourinary: No Symptoms Reported Neurological: No Symptoms Reported Musculoskeletal: No Symptoms Reported Integumentary: No Symptoms Reported Hematologic/Lymphatic: No Symptoms Reported Endocrine: No Symptoms Reported Psychiatric: No Symptoms Reported All Other Systems: Reviewed and Negative PE Vitals Vitals: Temperature 98.9 F Pulse Rate 114 Respiratory Rate 19 Blood Pressure [Left Arm] 180/81 Blood Pressure [Right Arm] 162/91 Blood Pressure 148/80 O2 Sat by Pulse Oximetry 98 General Limitations: No Limitations General Appearance: In Distress (mild pain distress) Head Head Exam: Normal Inspection Eyes Eye exam: Normal Appearance ENT ENT Exam: Normal Exam Chest Chest Inspection: Normal Inspection Respiratory Respiratory Exam: Normal Lung Sounds Bilat Cardiovascular Cardiovascular Exam: Regular Rate and Normal Rhythm Pulse: Normal Edema: Normal Abdominal Exam Abdominal Exam: Normal Inspection, Normal Bowel Sounds and Soft Extremities Extremities Exam: Normal Inspection Back Back Exam: Normal Inspection Neurologic Neurological Exam: Alert and Oriented X3 Psychiatric Psychiatric Exam: Normal Affect and Normal Mood Skin Skin Exam: Warm, Dry, Intact and Normal Color MDM Differential Diagnosis Differential Diagnosis: Angina, Aortic Dissection, Chest Wall Pain, CHF, Myocardial Infarction, Pericarditis and Pulmonary Embolus COURSE Treatment Treatment: 44 yo aaf w/ prev hx of cad/ mi presented w/ acute CP. Trop x 2 negative. EKG w/ some chronic ischemic changes h/e no acute [place]. Loaded with 325 mg asa. Elevated BP which was treated w/ hydralazine. Microcytic anemia noted, chronic hx of such. Beta thal vs iron deficiency anemia. No overt complaints of gi bleeding. Will admit for CP r/o acs. ? demand based ischemia from acute on chronic anemia. d/w Dr Hall whom agrees to admit. Education/Counseling Education/Counseling: Patient Educated On: Treatment, Diagnosis, Prognosis and Needs for Follow Up ROR Labs Reviewed Result Diagrams: 12/05/19 09:04 12/05/19 09:04 Laboratory: WBC 7.5 X10^3/uL (3.6-10.0) 12/05/19 09:04 RBC 4.68 X10^6/uL (3.5-5.4) 12/05/19 09:04 Hgb 6.9 g/dL (12.0-16.0) L* 12/05/19 09:04 Hct 24.6 % (36.0-47.0) L 12/05/19 09:04 MCV 52.6 fL (80.0-100.0) L 12/05/19 09:04 MCH 14.7 pg (27.0-34.0) L 12/05/19 09:04 MCHC 28.0 g/dL (33.0-35.0) L 12/05/19 09:04 RDW 21.8 % (11.6-16.5) H 12/05/19 09:04 Plt Count 560 X10^3/uL (150.0-450.0) H 12/05/19 09:04 Plt Count Comment Increased (ADEQUATE) A 12/05/19 09:04 MPV 8.1 fL (7.4-11.0) 12/05/19 09:04 Neut % (Auto) 71.6 % (42.0-75.0) 12/05/19 09:04 Lymph % (Auto) 20.9 % (21.0-51.0) L 12/05/19 09:04 [place] % (Auto) 4.4 % (0.0-13.0) 12/05/19 09:04 Eos % (Auto) 1.6 % (0.9-2.9) 12/05/19 09:04 Baso % (Auto) 1.5 % (0.2-1.0) H 12/05/19 09:04 Neut # (Auto) 5.4 x10^3/uL (2.2-4.8) H 12/05/19 09:04 Lymph # (Auto) 1.6 X10^3/uL (1.3-2.9) 12/05/19 09:04 [place] # (Auto) 0.3 x10^3/uL (0.3-0.8) 12/05/19 09:04 Eos # (Auto) 0.1 x10^3/uL (0.0-0.2) 12/05/19 09:04 Baso # (Auto) 0.1 X10^3/uL (0.0-0.1) 12/05/19 09:04 Absolute Nucleated RBC 0.2 /100WBC 12/05/19 09:04 Plt Morphology Comment Normal (NORMAL) 12/05/19 09:04 RBC Morphology Abnormal (NORMAL) A 12/05/19 09:04 Hypochromasia 3+ A 12/05/19 09:04 Anisocytosis 1+ A 12/05/19 09:04 Microcytosis 2+ A 12/05/19 09:04 Sodium 137 mmol/L (136-145) 12/05/19 09:04 Corrected Sodium 141 mmol/L (136-145) 12/05/19 09:04 Potassium 2.7 mmol/L (3.5-5.1) L* 12/05/19 09:04 Chloride 100 mmol/L (98-107) 12/05/19 09:04 Carbon Dioxide 27.2 mmol/L (21-32) 12/05/19 09:04 BUN 10 mg/dL (7-18) 12/05/19 09:04 Creatinine 0.79 mg/dL (0.55-1.02) 12/05/19 09:04 Est GFR (MDRD) Af Amer > 60 (>60) 12/05/19 09:04 Est GFR (MDRD) Non-Af > 60 (>60) 12/05/19 09:04 Glucose 271 mg/dL (65-99) H 12/05/19 09:04 Calcium 9.1 mg/dL (8.5-10.1) 12/05/19 09:04 Iron 13 ug/dL (50-175) L 12/05/19 09:04 TIBC 411 ug/dL (250-450) 12/05/19 09:04 TIBC Cancelled 12/05/19 09:04 % Saturation 3.2 % (11.0-46.0) L 12/05/19 09:04 Transferrin 327 mg/dL (202-364) 12/05/19 09:04 Ferritin 3 ng/mL (8-252) L 12/05/19 09:04 Troponin I 0.06 ng/mL (0-1.5) 12/05/19 12:51 Vitamin B12 463 pg/mL (193-986) 12/05/19 09:04 Folate 9.3 ng/mL (>8.6) 12/05/19 09:04 HCG, Qual Negative <10 mIU/mL 12/05/19 09:04 Blood Type O POSITIVE 12/05/19 09:04 Antibody Screen Negative 12/05/19 09:04 Crossmatch See Detail 12/05/19 09:04 XRAY XRAY Interpreted by: Self X-ray Results: cxr 1 view: CMG, No infiltrate, no hemo/pneumothorax EKG Rate: 106 [place]: Normal Rhythm: ST Block: None Hypertrophy: LVH ST: Nonsp Opioid Opioid Risk Tool Age (Beau box if 16-45): Yes History of Preadolescent Sexual Abuse: No Total: 1 Total Score Risk Category: Low Risk Copyright: James LEAL predicting aberrant behaviors
[2019-12-05] MEDS ORDERED: NITROSTAT ONE (08:17)
[2019-12-05] MEDS ORDERED: MORPHINE SULFATE INJ 4 MG IVP ONE (08:24)
[2019-12-05] MEDS ORDERED: ZOFRAN INJ 4 MG VIAL IVP ONE (08:24)
[2019-12-05 08:25] VITALS: BMI 35.9
[2019-12-05] MEDS ORDERED: ASPIRIN PO ONE (08:25)
[2019-12-05] MEDS ORDERED: ZOFRAN INJ 4 MG VIAL ONE (08:26)
[2019-12-05] MEDS ORDERED: MORPHINE SULFATE INJ 4 MG ONE (08:27)
--- NOTE | 2019-12-05 08:37 | RAD ---
HISTORYCHEST PAIN, SOBSTUDYCHEST, 1 VIEWCOMPARISONPortable chest March 25, 2019FINDINGSThe trachea is midline. The cardiac silhouette is unremarkable . The lungs are clear without focal infiltrate or effusion. The bony thorax is unremarkable.IMPRESSIONNo acute cardiopulmonary disease and no change from prior film 25 March 2019..Electronically signed by: MANUEL BARKSDALE (Dec 05, 2019 08:36:59)
[2019-12-05 08:38] LABS: BASOPHILS # (AUTO) 0.1 X10^3/uL (0.0-0.1); BASOPHILS % (AUTO) 1.5 % (0.2-1.0); EOSINOPHILS # (AUTO) 0.1 x10^3/uL (0.0-0.2); EOSINOPHILS % (AUTO) 1.6 % (0.9-2.9); HEMATOCRIT 24.6 % (36.0-47.0); LYMPHOCYTES # (AUTO) 1.6 X10^3/uL (1.3-2.9); LYMPHOCYTES % (AUTO) 20.9 % (21.0-51.0); MEAN CORPUSCULAR HEMOGLOBIN 14.7 pg (27.0-34.0); MEAN CORPUSCULAR VOLUME 52.6 fL (80.0-100.0); MEAN PLATELET VOLUME 8.1 fL (7.4-11.0); MONOCYTES # (AUTO) 0.3 x10^3/uL (0.3-0.8); MONOCYTES % (AUTO) 4.4 % (0.0-13.0); NEUTROPHILS # (AUTO) 5.4 x10^3/uL (2.2-4.8); NEUTROPHILS % (AUTO) 71.6 % (42.0-75.0); PLATELET COUNT 560 X10^3/uL (150.0-450.0); RED BLOOD COUNT 4.68 X10^6/uL (3.5-5.4); RED CELL DISTRIBUTION WIDTH 21.8 % (11.6-16.5); WHITE BLOOD COUNT 7.5 X10^3/uL (3.6-10.0)
[2019-12-05] MEDS ORDERED: ASPIRIN ONE (08:38)
[2019-12-05 08:48] LABS: SERUM PREGNANCY TEST, QUAL NEGATIVE <10 mIU/mL
[2019-12-05] MEDS ORDERED: NITROSTAT SL PRN ×2 (08:50→13:23)
[2019-12-05 08:52] LABS: HEMOGLOBIN 6.9 g/dL (12.0-16.0)
[2019-12-05 08:55] LABS: BLOOD UREA NITROGEN 10 mg/dL (7-18); CALCIUM 9.1 mg/dL (8.5-10.1); CARBON DIOXIDE 27.2 mmol/L (21-32); CHLORIDE 100 mmol/L (98-107); COR NA(FOR HYPERGLY) 141 mmol/L (136-145); CREATININE 0.79 mg/dL (0.55-1.02); SODIUM 137 mmol/L (136-145); TROPONIN I 0.07 ng/mL (0-1.5); eGFR NON BLACK RACES > 60 (>60)
[2019-12-05 08:56] LABS: PLATELET MORPHOLOGY COMMENT NORMAL (NORMAL)
[2019-12-05 08:57] LABS: ANISOCYTOSIS 1+; HYPOCHROMASIA 3+; MICROCYTOSIS 2+
[2019-12-05] MEDS ORDERED: NS 100 ML IV 100 ML with VENOFER 400 MG IV NR ×2 (10:47)
[2019-12-05] MEDS ORDERED: K-DUR TAB 20 MEQ PO ONE ×2 (10:59→11:01)
[2019-12-05] MEDS ORDERED: POTASSIUM ACETATE IV SCH ×2 (11:00)
[2019-12-05] MEDS ORDERED: NS IV SCH ×2 (11:00)
[2019-12-05] MEDS ORDERED: NS 500 ML IV 500 ML with POTASSIUM CHLORIDE INJ 40 MEQ VIAL 40 MEQ IV NR ×2 (11:00)
[2019-12-05] MEDS ORDERED: APRESOLINE INJ 20 MG VIAL IVP ONE (11:05)
[2019-12-05] MEDS ORDERED: APRESOLINE INJ 20 MG VIAL ONE (11:07)
[2019-12-05] MEDS ORDERED: NORMODYNE INJ 20 MG VIAL IVP ONE (12:34)
[2019-12-05] MEDS ORDERED: NORMODYNE INJ 20 MG VIAL ONE (12:44)
[2019-12-05 13:57] LABS: CKMB % 1.6 % (<4); CREATINE KINASE 63 Units/L (26-192); CREATINE KINASE MB < 1.0 ng/mL (0-4.0)
[2019-12-05 13:58] LABS: TROPONIN I 0.06 ng/mL (0-1.5)
[2019-12-05] MEDS: ZESTRIL TAB 40 MG PO SCH (14:03)
[2019-12-05] MEDS ORDERED: NS 500 ML IV 500 ML IV ONE (14:42)
[2019-12-05 19:56] LABS: CKMB % 2.1 % (<4); CREATINE KINASE 47 Units/L (26-192); CREATINE KINASE MB < 1.0 ng/mL (0-4.0); TROPONIN I 0.06 ng/mL (0-1.5)
[2019-12-05] MEDS: LOVENOX INJ 40 MG SYR SC SCH (20:54)
[2019-12-06] MEDS ORDERED: NS 250 ML IV 250 ML IV ONE ×2 (01:38→11:17)
[2019-12-06 02:47] LABS: CKMB % 1.7 % (<4); CREATINE KINASE MB 0.7 ng/mL (0-4.0); TROPONIN I 0.06 ng/mL (0-1.5)
[2019-12-06 07:13] LABS: CHOL/HDL RATIO 4.8 (0.0-5.0)
[2019-12-06] MEDS: LOVENOX INJ 40 MG SYR SC SCH (07:45)
[2019-12-06] MEDS: ZESTRIL TAB 40 MG PO SCH (07:45)
[2019-12-06] MEDS ORDERED: LASIX PO SCH (09:00)
[2019-12-06] MEDS ORDERED: ASPIRIN PO SCH (09:00)
[2019-12-06] MEDS ORDERED: MICRO K EXTEN CAP 10 MEQ PO SCH (09:00)
[2019-12-06] MEDS ORDERED: TOPROL XL PO STA (09:43)
[2019-12-06] MEDS ORDERED: TOPROL XL PO ONE (09:46)
[2019-12-06 15:48] LABS: BASOPHILS # (AUTO) 0.1 X10^3/uL (0.0-0.1); BASOPHILS % (AUTO) 0.8 % (0.2-1.0); EOSINOPHILS # (AUTO) 0.3 x10^3/uL (0.0-0.2); HEMATOCRIT 29.1 % (36.0-47.0); HEMOGLOBIN 8.6 g/dL (12.0-16.0); LYMPHOCYTES # (AUTO) 2.5 X10^3/uL (1.3-2.9); LYMPHOCYTES % (AUTO) 27.7 % (21.0-51.0); MEAN CORPUSCULAR HEMOGLOBIN 17.6 pg (27.0-34.0); MEAN CORPUSCULAR HGB CONC 29.4 g/dL (33.0-35.0); MEAN CORPUSCULAR VOLUME 59.8 fL (80.0-100.0); MEAN PLATELET VOLUME 8.8 fL (7.4-11.0); MONOCYTES # (AUTO) 0.3 x10^3/uL (0.3-0.8); MONOCYTES % (AUTO) 3.3 % (0.0-13.0); NEUTROPHILS # (AUTO) 5.9 x10^3/uL (2.2-4.8); NEUTROPHILS % (AUTO) 65.2 % (42.0-75.0); PLATELET COUNT 520 X10^3/uL (150.0-450.0); RED BLOOD COUNT 4.86 X10^6/uL (3.5-5.4); RED CELL DISTRIBUTION WIDTH 32.2 % (11.6-16.5); WHITE BLOOD COUNT 9.1 X10^3/uL (3.6-10.0)
[2019-12-06 15:54] LABS: ANISOCYTOSIS 3+; HYPOCHROMASIA 3+; PLATELET MORPHOLOGY COMMENT NORMAL (NORMAL)
[2019-12-06 15:55] LABS: MICROCYTOSIS 3+
[2019-12-06 17:21] VITALS: BP 149/89
--- NOTE | 2019-12-20 08:23 | DR.CP ---
HPI Time Seen Time Seen by Provider: 12/05/19 08:14 PCP Primary Care Physician: none Complaint Chief Complaint:: PT C/O MIDSTERNAL AND LT SIDED CHEST PAIN ASSOCIATED WITH SHORTNESS OF BREATH AND DIAPHORESIS. PT STATES THE PAIN CAME ON ALL OF SUDDEN APPROX 30 MINS AGO. COVID-19 Coronavirus risk:travel/contact w/high risk person: No Has patient experienced Coronavirus symptoms: Yes Coronavirus symptoms experienced: Shortness of Breath Source History Provided: Patient Mode of Arrival Mode of Arrival: Ambulatory Timing Onset of Chief Complaint: 12/05/19 Came on: Suddenly Pain: Present Now Duration Duration: Since Onset How lon Duration: Minutes Location Location of Chest Pain: Chest Chest Pain Radiation Location: None Context Onset: At rest Cardiac Risk Factors: HTN and Diabetes PE Risk Factors: None History of: [place] and Angina Prehospital Care: None Quality Quality: Pressure like Severity Severity: Mild Modifying Factors Worsens: Nothing Impoves: Nothing Associated Signs and Symptoms Associated Signs and Symptoms: Diaphoresis; denies Palpitations, Abdominal Pain, Nausea/Vomiting, Calf Pain/Swelling and Chest Rash PMH PMH Past Medical History: Yes Past Medical History: Anemia, Angina, CHF, Coronary Artery Disease, Diabetes and Hypertension Past Surgical History: Yes Surgical History: Family History History of Family Medical Conditions: Yes Family Medical History: Diabetes Mellitus, [place], Coronary Artery Disease, Sudden Cardiac and Hypertension Social History Does patient currently use any type of tobacco product: No Have you used tobacco products in the last 12 months: No Type of Tobacco Use: None Does any household member use tobacco: Yes Alcohol Use: None Do you use any recreational Drugs:: No Lives With: Family Lives Where: Home Travel Risk Coronavirus risk:travel/contact w/high risk person: No Has patient experienced Coronavirus symptoms: Yes Coronavirus symptoms experienced: Shortness of Breath Infectious screening In the last 2 months have you had wt loss of >10#?: NO Have you had fever, night sweats or hemotysis?: No Have you traveled outside the country in the last 6 months?: No Isolation: Standard ROS Review of Systems Constitutional: No Symptoms Reported Eyes: No Symptoms Reported ENTM: No Symptoms Reported Respiratoy: Short of Breath; negative Productive Cough and Dry Cough Cardiovascular: Chest Pain; negative Edema, Palpitations, Syncope and Cyanosis Gastrointestinal/Abdominal: No Symptoms Reported Genitourinary: No Symptoms Reported Neurological: No Symptoms Reported Musculoskeletal: No Symptoms Reported Integumentary: No Symptoms Reported Hematologic/Lymphatic: No Symptoms Reported Endocrine: No Symptoms Reported Psychiatric: No Symptoms Reported All Other Systems: Reviewed and Negative PE Vitals Vitals: Temperature 98.9 F Pulse Rate 114 Respiratory Rate 19 Blood Pressure [Left Arm] 180/81 Blood Pressure [Right Arm] 162/91 Blood Pressure 148/80 O2 Sat by Pulse Oximetry 98 General Limitations: No Limitations General Appearance: Alert and In No Apparent Distress Head Head Exam: Normal Inspection Eyes Eye exam: Normal Appearance ENT ENT Exam: Normal Exam Chest Chest Inspection: Normal Inspection Respiratory Respiratory Exam: Normal Lung Sounds Bilat Cardiovascular Cardiovascular Exam: Regular Rate and Normal Rhythm Pulse: Normal Edema: Normal Abdominal Exam Abdominal Exam: Normal Inspection, Normal Bowel Sounds and Soft Extremities Extremities Exam: Normal Inspection Back Back Exam: Normal Inspection Neurologic Neurological Exam: Alert and Oriented X3 Psychiatric Psychiatric Exam: Normal Affect and Normal Mood Skin Skin Exam: Warm, Dry, Intact and Normal Color MDM Differential Diagnosis Differential Diagnosis: Angina, Aortic Dissection, Chest Wall Pain, CHF, Costochondritis, Myocardial Infarction and Pulmonary Embolus COURSE Treatment Treatment: 44 yo f w/ prev hx of cad/ mi presents w/ acute CP. TNI neg-. EKG w/o signs of stemi. d/w hospitalist whom agrees to admit for cp r/o acs. ROR Labs Reviewed Laboratory Results Reviewed?: Yes Result Diagrams: 12/06/19 15:25 12/05/19 17:25 Laboratory: WBC 7.5 X10^3/uL (3.6-10.0) 12/05/19 09:04 RBC 4.68 X10^6/uL (3.5-5.4) 12/05/19 09:04 Hgb 6.9 g/dL (12.0-16.0) L* 12/05/19 09:04 Hct 24.6 % (36.0-47.0) L 12/05/19 09:04 MCV 52.6 fL (80.0-100.0) L 12/05/19 09:04 MCH 14.7 pg (27.0-34.0) L 12/05/19 09:04 MCHC 28.0 g/dL (33.0-35.0) L 12/05/19 09:04 RDW 21.8 % (11.6-16.5) H 12/05/19 09:04 Plt Count 560 X10^3/uL (150.0-450.0) H 12/05/19 09:04 Plt Count Comment Increased (ADEQUATE) A 12/05/19 09:04 MPV 8.1 fL (7.4-11.0) 12/05/19 09:04 Neut % (Auto) 71.6 % (42.0-75.0) 12/05/19 09:04 Lymph % (Auto) 20.9 % (21.0-51.0) L 12/05/19 09:04 [place] % (Auto) 4.4 % (0.0-13.0) 12/05/19 09:04 Eos % (Auto) 1.6 % (0.9-2.9) 12/05/19 09:04 Baso % (Auto) 1.5 % (0.2-1.0) H 12/05/19 09:04 Neut # (Auto) 5.4 x10^3/uL (2.2-4.8) H 12/05/19 09:04 Lymph # (Auto) 1.6 X10^3/uL (1.3-2.9) 12/05/19 09:04 [place] # (Auto) 0.3 x10^3/uL (0.3-0.8) 12/05/19 09:04 Eos # (Auto) 0.1 x10^3/uL (0.0-0.2) 12/05/19 09:04 Baso # (Auto) 0.1 X10^3/uL (0.0-0.1) 12/05/19 09:04 Absolute Nucleated RBC 0.2 /100WBC 12/05/19 09:04 Plt Morphology Comment Normal (NORMAL) 12/05/19 09:04 RBC Morphology Abnormal (NORMAL) A 12/05/19 09:04 Hypochromasia 3+ A 12/05/19 09:04 Anisocytosis 1+ A 12/05/19 09:04 Microcytosis 2+ A 12/05/19 09:04 Sodium 137 mmol/L (136-145) 12/05/19 09:04 Corrected Sodium 141 mmol/L (136-145) 12/05/19 09:04 Potassium 2.7 mmol/L (3.5-5.1) L* 12/05/19 09:04 Chloride 100 mmol/L (98-107) 12/05/19 09:04 Carbon Dioxide 27.2 mmol/L (21-32) 12/05/19 09:04 BUN 10 mg/dL (7-18) 12/05/19 09:04 Creatinine 0.79 mg/dL (0.55-1.02) 12/05/19 09:04 Est GFR (MDRD) Af Amer > 60 (>60) 12/05/19 09:04 Est GFR (MDRD) Non-Af > 60 (>60) 12/05/19 09:04 Glucose 271 mg/dL (65-99) H 12/05/19 09:04 Calcium 9.1 mg/dL (8.5-10.1) 12/05/19 09:04 Magnesium 1.6 mg/dL (1.7-2.9) L 12/05/19 12:51 Iron 13 ug/dL (50-175) L 12/05/19 09:04 TIBC 411 ug/dL (250-450) 12/05/19 09:04 TIBC Cancelled 12/05/19 09:04 % Saturation 3.2 % (11.0-46.0) L 12/05/19 09:04 Transferrin 327 mg/dL (202-364) 12/05/19 09:04 Ferritin 3 ng/mL (8-252) L 12/05/19 09:04 Creatine Kinase 63 Units/L (26-192) 12/05/19 12:51 CK-MB (CK-2) < 1.0 ng/mL (0-4.0) 12/05/19 12:51 CK/CKMB % Calc 1.6 % (<4) 12/05/19 12:51 Troponin I 0.06 ng/mL (0-1.5) 12/05/19 12:51 Troponin I Cancelled 12/05/19 12:51 Vitamin B12 463 pg/mL (193-986) 12/05/19 09:04 Folate 9.3 ng/mL (>8.6) 12/05/19 09:04 HCG, Qual Negative <10 mIU/mL 09/11/20 09:04 Blood Type O POSITIVE 12/05/19 09:04 Antibody Screen Negative 12/05/19 09:04 Crossmatch See Detail 12/05/19 09:04 EKG [place]: Normal Rhythm: NSR Block: None Hypertrophy: None ST: Nonsp Opioid Opioid Risk Tool Age (Beau box if 16-45): No History of Preadolescent Sexual Abuse: No Total: 0 Total Score Risk Category: Low Risk Copyright: James LEAL predicting aberrant behaviors Diagnosis Discharge Problem: Acute chest pain, Accelerated essential hypertension, Acute on chronic anemia Instructions Instructions: Shortness of Breath, Adult, [id number] Anemia Hypertension
== END 2019-12-06 16:45 | disposition home or self-care (01) | DRG 812 ==
LOC: ER 08:11 → MED/SURG 13:21
PROVIDERS: ADMIT Obstetrics & Gynecology Obstetrics; ATTEND Obstetrics & Gynecology Obstetrics
DX: E11.65 Type 2 diabetes mellitus with hyperglycemia; R06.02 Shortness of breath; R07.89 Other chest pain; I10 Essential (primary) hypertension; R94.31 Abnormal electrocardiogram [ECG] [EKG]; I25.10 Atherosclerotic heart disease of native coronary artery without angina pectoris; R11.2 Nausea with vomiting, unspecified; I31.3 Pericardial effusion (noninflammatory); D50.8 Other iron deficiency anemias

== ENCOUNTER 2020-07-26 04:57 | Observation (INO) ==
--- NOTE | 2020-07-26 05:05 | DR.DIZZY ---
HPI Time seen Time Seen by Provider: 07/26/20 05:02 PCP Primary Care Physician: CELESTE HPI Comment HPI Comment: DIZZINESS AND VOMITING. Complaint Chief Complaint:: PT IN ED VIA [facility] WITH C/O GETTING HOT AT WORK THEN GETTING DIZZY AND VOMITING X 2. COVID-19 Coronavirus risk:travel/contact w/high risk person: No Has patient experienced Coronavirus symptoms: No Source History Provided: Patient Mode of Arrival Mode of Arrival: EMS Timing Onset of Chief Complaint: 07/26/20 PMH PMH Past Medical History: Yes Past Medical History: Anemia, Angina, Arthritis, CHF, Coronary Artery Disease, Diabetes and Hypertension Past Surgical History: Yes Surgical History: Family History History of Family Medical Conditions: Yes Family Medical History: Diabetes Mellitus, Cancer, [place], Coronary Artery Disease and Hypertension Social History Does patient currently use any type of tobacco product: No Have you used tobacco products in the last 12 months: No Type of Tobacco Use: None Does any household member use tobacco: No Alcohol Use: None Do you use any recreational Drugs:: No Lives With: Spouse and Family Lives Where: Home Travel Risk Coronavirus risk:travel/contact w/high risk person: No Has patient experienced Coronavirus symptoms: No Infectious screening In the last 2 months have you had wt loss of >10#?: NO Have you had fever, night sweats or hemotysis?: No Have you traveled outside the country in the last 6 months?: No Isolation: Standard ROS Review of Systems Constitutional: See HPI, Weakness and Fatigue; negative Fever Eyes: See HPI and Blurred Vision ENTM: No Symptoms Reported and See HPI; negative Nose Discharge and Nose Congestion Respiratoy: No Symptoms Reported and See HPI Cardiovascular: No Symptoms Reported and See HPI Gastrointestinal/Abdominal: No Symptoms Reported and See HPI Genitourinary: No Symptoms Reported and See HPI Neurological: No Symptoms Reported and See HPI Musculoskeletal: No Symptoms Reported and See HPI Integumentary: No Symptoms Reported and See HPI Hematologic/Lymphatic: No Symptoms Reported and See HPI Endocrine: No Symptoms Reported and See HPI Psychiatric: No Symptoms Reported and See HPI All Other Systems: Reviewed and Negative PE Vital Signs Vitals: Temperature 98.7 F Pulse Rate 115 Respiratory Rate 20 Blood Pressure [Left Arm] 149/89 Blood Pressure 155/91 O2 Sat by Pulse Oximetry 100 General Limitations: No Limitations General Appearance: Alert and In No Apparent Distress Head Head Exam: Normal Inspection Eyes Eye exam: Normal Appearance ENT ENT Exam: Normal Exam, Normal Oropharynx and Normal External Ear Exam Neck Neck Exam: Normal Inspection and Full ROM Chest Chest Inspection: Normal Inspection Respiratory Respiratory Exam: Normal Lung Sounds Bilat Cardiovascular Cardiovascular Exam: Regular Rate and Normal Rhythm Abdominal Exam Abdominal Exam: Normal Inspection, Normal Bowel Sounds and Soft Rectal Rectal Exam: Deferred Extremeties Extremities Exam: Normal Inspection and Full ROM Back Back Exam: Normal Inspection and Full ROM Neurologic Neurological Exam: Alert and Oriented X3 Psychiatric Psychiatric Exam: Normal Affect and Normal Mood Skin Skin Exam: Warm, Dry, Intact and Normal Color ROR Labs Reviewed Result Diagrams: 07/27/20 05:26 07/27/20 05:26 Laboratory: WBC 9.9 X10^3/uL (3.6-10.0) 07/26/20 05:24 RBC 4.61 X10^6/uL (3.5-5.4) 07/26/20 05:24 Hgb 7.1 g/dL (12.0-16.0) L 07/26/20 05:24 Hct 25.8 % (36.0-47.0) L 07/26/20 05:24 MCV 55.9 fL (80.0-100.0) L 07/26/20 05:24 MCH 15.3 pg (27.0-34.0) L 07/26/20 05:24 MCHC 27.4 g/dL (33.0-35.0) L 07/26/20 05:24 RDW 21.0 % (11.6-16.5) H 07/26/20 05:24 Plt Count 866 X10^3/uL (150.0-450.0) H 07/26/20 05:24 Plt Count Comment Increased (ADEQUATE) A 07/26/20 05:24 MPV 8.5 fL (7.4-11.0) 07/26/20 05:24 Neut % (Auto) 79.3 % (42.0-75.0) H 07/26/20 05:24 Lymph % (Auto) 16.4 % (21.0-51.0) L 07/26/20 05:24 [place] % (Auto) 3.3 % (0.0-13.0) 07/26/20 05:24 Eos % (Auto) 0.1 % (0.9-2.9) L 07/26/20 05:24 Baso % (Auto) 0.9 % (0.2-1.0) 07/26/20 05:24 Neut # (Auto) 7.9 x10^3/uL (2.2-4.8) H 07/26/20 05:24 Lymph # (Auto) 1.6 X10^3/uL (1.3-2.9) 07/26/20 05:24 [place] # (Auto) 0.3 x10^3/uL (0.3-0.8) 07/26/20 05:24 Eos # (Auto) 0.0 x10^3/uL (0.0-0.2) 07/26/20 05:24 Baso # (Auto) 0.1 X10^3/uL (0.0-0.1) 07/26/20 05:24 Absolute Nucleated RBC 0.3 /100WBC 07/26/20 05:24 Plt Morphology Comment Normal (NORMAL) 07/26/20 05:24 RBC Morphology Abnormal (NORMAL) A 07/26/20 05:24 Hypochromasia 3+ A 07/26/20 05:24 Anisocytosis 2+ A 07/26/20 05:24 Microcytosis 3+ A 07/26/20 05:24 Ovalocytes Slight A 07/26/20 05:24 Sodium 135 mmol/L (136-145) L 07/26/20 05:24 Corrected Sodium 142 mmol/L (136-145) 07/26/20 05:24 Potassium 3.6 mmol/L (3.5-5.1) 07/26/20 05:24 Chloride 97 mmol/L (98-107) L 07/26/20 05:24 Carbon Dioxide 24.0 mmol/L (21-32) 07/26/20 05:24 BUN 15 mg/dL (7-18) 07/26/20 05:24 Creatinine 0.90 mg/dL (0.55-1.02) 07/26/20 05:24 Est GFR (MDRD) Af Amer > 60 (>60) 07/26/20 05:24 Est GFR (MDRD) Non-Af > 60 (>60) 07/26/20 05:24 Glucose 399 mg/dL (65-99) H 07/26/20 05:24 Calcium 8.7 mg/dL (8.5-10.1) 07/26/20 05:24 Corrected Calcium TNP 07/26/20 05:24 Total Bilirubin 0.60 mg/dL (0.2-1.0) 07/26/20 05:24 AST 33 Units/L (15-37) 07/26/20 05:24 ALT 18 Units/L (12-78) 07/26/20 05:24 Alkaline Phosphatase 70 Units/L (46-116) 07/26/20 05:24 Creatine Kinase 91 Units/L (26-192) 07/26/20 05:24 CK-MB (CK-2) < 1.0 ng/mL (0-4.0) 07/26/20 05:24 CK/CKMB % Calc 1.1 % (<4) 07/26/20 05:24 Troponin I 0.04 ng/mL (0-1.5) 07/26/20 05:24 Total Protein 8.1 g/dL (6.4-8.2) 07/26/20 05:24 Albumin 3.6 g/dL (3.4-5.0) 07/26/20 05:24 Globulin 4.5 g/dL (2.5-4.5) 07/26/20 05:24 Albumin/Globulin Ratio 0.8 Ratio (1.1-2.1) L 07/26/20 05:24 Specimen Type Clean catch urine 07/26/20 06:42 Urine Color Yellow (YELLOW) 07/26/20 06:42 Urine Appearance Clear (CLEAR) 07/26/20 06:42 Urine pH 5.0 (5.0 - 8.0) 07/26/20 06:42 Ur Specific [place] 1.015 (1.000-1.030) 07/26/20 06:42 Urine Protein Negative (NEGATIVE) 07/26/20 06:42 Urine Glucose (UA) 4+ (NEGATIVE) 07/26/20 06:42 Urine Ketones 3+ (NEGATIVE) 07/26/20 06:42 Urine Occult Blood Negative (NEGATIVE) 07/26/20 06:42 Urine Nitrite Negative (NEGATIVE) 07/26/20 06:42 Urine Bilirubin Negative (NEGATIVE) 07/26/20 06:42 Urine Urobilinogen Normal (NORMAL) 07/26/20 06:42 Ur Leukocyte Esterase Negative (NEGATIVE) 07/26/20 06:42 SARS CoV-2 RNA Rapid CHRISTA Negative (NEGATIVE) 07/26/20 06:57 Blood Type O POSITIVE 07/26/20 06:57 Antibody Screen Negative 07/26/20 06:57 Crossmatch See Detail 07/26/20 06:57 Opioid Opioid Risk Tool Age (Beau box if 16-45): Yes History of Preadolescent Sexual Abuse: No Total: 1 Total Score Risk Category: Low Risk Copyright: Ramirez LR predicting aberrant behaviors Diagnosis Discharge Problem: Dizziness, Near syncope Anemia Qualifiers: Anemia type: unspecified type Qualified Code(s): D64.9 - Anemia, unspecified Instructions Instructions: Type 2 Diabetes Mellitus, Diagnosis, Adult Shortness of Breath, Adult, Jupl-ei-Thde Anemia Preventing Iron Deficiency Anemia, Adult Form - Daily Diabetes Record Near-Syncope, Gyoz-gy-Sege Hypertension, Gbnk-um-Azlz Form - Blood Pressure Record Sheet Dizziness, Cclp-rm-Nhmu Iron-Rich Diet Managing Your Hypertension Forms: Excuse From Work or School Precautions for COVID19 Patient Portal Social Distancing
[2020-07-26 05:33] LABS: BASOPHILS # (AUTO) 0.1 X10^3/uL (0.0-0.1); BASOPHILS % (AUTO) 0.9 % (0.2-1.0); EOSINOPHILS % (AUTO) 0.1 % (0.9-2.9); HEMATOCRIT 25.8 % (36.0-47.0); HEMOGLOBIN 7.1 g/dL (12.0-16.0); LYMPHOCYTES # (AUTO) 1.6 X10^3/uL (1.3-2.9); LYMPHOCYTES % (AUTO) 16.4 % (21.0-51.0); MEAN CORPUSCULAR HEMOGLOBIN 15.3 pg (27.0-34.0); MEAN CORPUSCULAR HGB CONC 27.4 g/dL (33.0-35.0); MEAN CORPUSCULAR VOLUME 55.9 fL (80.0-100.0); MEAN PLATELET VOLUME 8.5 fL (7.4-11.0); MONOCYTES # (AUTO) 0.3 x10^3/uL (0.3-0.8); MONOCYTES % (AUTO) 3.3 % (0.0-13.0); NEUTROPHILS # (AUTO) 7.9 x10^3/uL (2.2-4.8); NEUTROPHILS % (AUTO) 79.3 % (42.0-75.0); PLATELET COUNT 866 X10^3/uL (150.0-450.0); RED BLOOD COUNT 4.61 X10^6/uL (3.5-5.4); WHITE BLOOD COUNT 9.9 X10^3/uL (3.6-10.0)
[2020-07-26 05:47] LABS: BLOOD UREA NITROGEN 15 mg/dL (7-18); CALCIUM 8.7 mg/dL (8.5-10.1); CHLORIDE 97 mmol/L (98-107); COR NA(FOR HYPERGLY) 142 mmol/L (136-145); SODIUM 135 mmol/L (136-145); TROPONIN I 0.04 ng/mL (0-1.5); eGFR NON BLACK RACES > 60 (>60)
[2020-07-26 05:53] LABS: ALANINE AMINOTRANSFERASE 18 Units/L (12-78); ALBUMIN 3.6 g/dL (3.4-5.0); ALKALINE PHOSPHATASE 70 Units/L (46-116); ASPARTATE AMINO TRANSFERASE 33 Units/L (15-37); CKMB % 1.1 % (<4); CREATINE KINASE 91 Units/L (26-192); CREATINE KINASE MB < 1.0 ng/mL (0-4.0); TOTAL PROTEIN 8.1 g/dL (6.4-8.2)
--- NOTE | 2020-07-26 05:56 | CT ---
History: PT C/O GETTING HOT AT WORK THEN GETTING DIZZY ALONG WITH N/V PMH: ANGINA, CHF, CAD, DM, HTN PSH: CSECExam :BRAIN W/O CONTechnique: Thin section axial ct images of the brain were obtained from the foramen magnum to the vertex without contrast. Sagittal and coronal reconstructions were also performed.Comparison: NoneFindings:The ventricles are within normal limits in size. No midline shift, mass effect or extra-axial fluid collections. No evidence of acute hemorrhage or acute macroinfarction.The visualized paranasal sinuses and mastoids are unremarkable. The calvarium is intact.Impression:Normal noncontrast CT of the brain; no acute intracranial pathologyElectronically signed by: Adama Rodriguez (July 26, 2020 05:55:03)
[2020-07-26 06:11] LABS: ANISOCYTOSIS 2+; HYPOCHROMASIA 3+; MICROCYTOSIS 3+; OVALOCYTES SLIGHT; PLATELET MORPHOLOGY COMMENT NORMAL (NORMAL)
--- NOTE | 2020-07-26 06:18 | RAD ---
HISTORYPT C/O SOBSTUDYCHEST, 1 [id number]/11/2020.TECHNIQUEAP view of the chestFINDINGSThe cardiac and mediastinal contours are within normal limits. The lungs are clear without focal consolidation or segmental collapse. No pleural effusion or pneumothorax.IMPRESSIONNo acute pulmonary process.Electronically signed by: Jim Cleary (July 26, 2020 06:16:36)
[2020-07-26 06:55] LABS: BILIRUBIN,URINE NEGATIVE (NEGATIVE); BLOOD/HEMOGLOBIN,URINE NEGATIVE (NEGATIVE); GLUCOSE, URINE 4+ (NEGATIVE); KETONES,URINE 3+ (NEGATIVE); LEUKOCYTE ESTERASE ,URINE NEGATIVE (NEGATIVE); NITRITES,URINE NEGATIVE (NEGATIVE); PROTEIN,URINE NEGATIVE (NEGATIVE); UROBILINOGEN,URINE NORMAL (NORMAL)
[2020-07-26 07:00] LABS: APPEARANCE,URINE CLEAR (CLEAR); COLOR,URINE YELLOW (YELLOW)
[2020-07-26 08:50] VITALS: BMI 35.5
[2020-07-26] MEDS ORDERED: ZESTRIL TAB 20 MG ONE ×2 (08:59→19:36)
[2020-07-26] MEDS ORDERED: GLUCOPHAGE ONE ×2 (08:59→19:36)
[2020-07-26] MEDS: NS 1000 ML 1,000 ML IV SCH ×2 (09:05→20:51)
[2020-07-26] MEDS: ZESTRIL TAB 20 MG PO SCH ×2 (09:05→20:00)
[2020-07-26] MEDS: GLUCOPHAGE PO SCH ×2 (09:05→19:59)
[2020-07-26] MEDS: HEMOCYTE-PLUS PO SCH ×2 (09:05→20:00)
[2020-07-26] MEDS ORDERED: NS 500 ML IV 500 ML IV PRN (09:31)
--- NOTE | 2020-07-26 13:46 | DR.H&P ---
H&P History & Physical for Day of: H&P Date: 07/26/20 Chief Complaint Chief Complaint: dizziness, weakness, SOB Allergies Allergies Allergy/AdvReac Type Severity Reaction Status Date / Time No Known Drug Allergies Allergy Verified 12/05/19 09:34 History of Present Illness History of Present Illness: Ms. Thrasher is a 44y/o female with a PMH of iron deficiency anemia, HTN, Type 2 DM, CAD, CHF presented with dizziness and weakness. She states she was at work when she noticed that she became very dizzy and almost passed out. She states this has happened before when her Hgb was really low and she had to be admitted for transfusions about 6 months ago. She reports worsening dyspnea on exertion. She denies chest pain. Denies GI Sx. Denies active bleeding. She does not have a PCP. She reports taking metformin BID and lisinopril 20 mg BID. She also takes iron supplements daily. She states she had a cath years ago but no stent was placed and she was told she has CHF. She has not seen cardiology recently. ER work-up - CXR: (-) CT-head: (-) - Labs: Hgb 7.1 Plt 866 BUN/Cr: 15/0.90 Glucose 399 She was admitted for anemia requiring blood transfusions. Patient is currently receiving her first unit of PRBCs. Plan: transfuse 2 units PRBCs, check post 1 hour H/H. Will order echo due to worsening dyspnea. Resume home medications. Will check anemia panel and A1C. Monitor AM labs. Past Medical History Past Medical History: Anemia, Arthritis, CHF, Coronary Artery Disease, Diabetes and Hypertension Past Surgical History Surgical History: Family History Family Medical History: Diabetes Mellitus, Cancer and [place] Social History Does patient currently use any type of tobacco product: No Have you used tobacco products in the last 12 months: No Type of Tobacco Use: None Does any household member use tobacco: No Alcohol Use: None Drug Use: None Medications Home Medications: No Known Drug Allergies Allergy (Verified 12/05/19 09:34) CONTINUE taking the following medications ferrous sulfate [iron] 325 mg PO BID 07/26/20 [History] lisinopril 20 mg PO BID 07/26/20 [History] Labs Result Diagrams: 07/26/20 05:24 07/26/20 05:24 Labs: Laboratory WBC 9.9 X10^3/uL (3.6-10.0) 07/26/20 05:24 RBC 4.61 X10^6/uL (3.5-5.4) 07/26/20 05:24 Hgb 7.1 g/dL (12.0-16.0) L 07/26/20 05:24 Hct 25.8 % (36.0-47.0) L 07/26/20 05:24 MCV 55.9 fL (80.0-100.0) L 07/26/20 05:24 MCH 15.3 pg (27.0-34.0) L 07/26/20 05:24 MCHC 27.4 g/dL (33.0-35.0) L 07/26/20 05:24 RDW 21.0 % (11.6-16.5) H 07/26/20 05:24 Plt Count 866 X10^3/uL (150.0-450.0) H 07/26/20 05:24 Plt Count Comment Increased (ADEQUATE) A 07/26/20 05:24 MPV 8.5 fL (7.4-11.0) 07/26/20 05:24 Neut % (Auto) 79.3 % (42.0-75.0) H 07/26/20 05:24 Lymph % (Auto) 16.4 % (21.0-51.0) L 07/26/20 05:24 [place] % (Auto) 3.3 % (0.0-13.0) 07/26/20 05:24 Eos % (Auto) 0.1 % (0.9-2.9) L 07/26/20 05:24 Baso % (Auto) 0.9 % (0.2-1.0) 07/26/20 05:24 Neut # (Auto) 7.9 x10^3/uL (2.2-4.8) H 07/26/20 05:24 Lymph # (Auto) 1.6 X10^3/uL (1.3-2.9) 07/26/20 05:24 [place] # (Auto) 0.3 x10^3/uL (0.3-0.8) 07/26/20 05:24 Eos # (Auto) 0.0 x10^3/uL (0.0-0.2) 07/26/20 05:24 Baso # (Auto) 0.1 X10^3/uL (0.0-0.1) 07/26/20 05:24 Absolute Nucleated RBC 0.3 /100WBC 07/26/20 05:24 Plt Morphology Comment Normal (NORMAL) 07/26/20 05:24 RBC Morphology Abnormal (NORMAL) A 07/26/20 05:24 Hypochromasia 3+ A 07/26/20 05:24 Anisocytosis 2+ A 07/26/20 05:24 Microcytosis 3+ A 07/26/20 05:24 Ovalocytes Slight A 07/26/20 05:24 Sodium 135 mmol/L (136-145) L 07/26/20 05:24 Corrected Sodium 142 mmol/L (136-145) 07/26/20 05:24 Potassium 3.6 mmol/L (3.5-5.1) 07/26/20 05:24 Chloride 97 mmol/L (98-107) L 07/26/20 05:24 Carbon Dioxide 24.0 mmol/L (21-32) 07/26/20 05:24 BUN 15 mg/dL (7-18) 07/26/20 05:24 Creatinine 0.90 mg/dL (0.55-1.02) 07/26/20 05:24 Est GFR (MDRD) Af Amer > 60 (>60) 07/26/20 05:24 Est GFR (MDRD) Non-Af > 60 (>60) 07/26/20 05:24 Glucose 399 mg/dL (65-99) H 07/26/20 05:24 Calcium 8.7 mg/dL (8.5-10.1) 07/26/20 05:24 Corrected Calcium TNP 07/26/20 05:24 Total Bilirubin 0.60 mg/dL (0.2-1.0) 07/26/20 05:24 AST 33 Units/L (15-37) 07/26/20 05:24 ALT 18 Units/L (12-78) 07/26/20 05:24 Alkaline Phosphatase 70 Units/L (46-116) 07/26/20 05:24 Creatine Kinase 91 Units/L (26-192) 07/26/20 05:24 CK-MB (CK-2) < 1.0 ng/mL (0-4.0) 07/26/20 05:24 CK/CKMB % Calc 1.1 % (<4) 07/26/20 05:24 Troponin I 0.04 ng/mL (0-1.5) 07/26/20 05:24 Total Protein 8.1 g/dL (6.4-8.2) 07/26/20 05:24 Albumin 3.6 g/dL (3.4-5.0) 07/26/20 05:24 Globulin 4.5 g/dL (2.5-4.5) 07/26/20 05:24 Albumin/Globulin Ratio 0.8 Ratio (1.1-2.1) L 07/26/20 05:24 Specimen Type Clean catch urine 07/26/20 06:42 Urine Color Yellow (YELLOW) 07/26/20 06:42 Urine Appearance Clear (CLEAR) 07/26/20 06:42 Urine pH 5.0 (5.0 - 8.0) 07/26/20 06:42 Ur Specific [place] 1.015 (1.000-1.030) 07/26/20 06:42 Urine Protein Negative (NEGATIVE) 07/26/20 06:42 Urine Glucose (UA) 4+ (NEGATIVE) 07/26/20 06:42 Urine Ketones 3+ (NEGATIVE) 07/26/20 06:42 Urine Occult Blood Negative (NEGATIVE) 07/26/20 06:42 Urine Nitrite Negative (NEGATIVE) 07/26/20 06:42 Urine Bilirubin Negative (NEGATIVE) 07/26/20 06:42 Urine Urobilinogen Normal (NORMAL) 07/26/20 06:42 Ur Leukocyte Esterase Negative (NEGATIVE) 07/26/20 06:42 SARS CoV-2 RNA Rapid CHRISTA Negative (NEGATIVE) 07/26/20 06:57 Blood Type O POSITIVE 07/26/20 06:57 Antibody Screen Negative 07/26/20 06:57 Crossmatch See Detail 07/26/20 06:57 Review of Systems Constitutional: Weakness Eyes: No Symptoms Reported ENT: No Symptoms Reported Respiratory: SOB with Excertion Cardiovascular: Edema Gastrointestinal: No Symptoms Reported Genitourinary: No Symptoms Reported Musculoskeletal: No Symptoms Reported Skin: No Symptoms Reported Neurological: No Symptoms Reported Physical Exam Vital Signs: Temperature 98.5 F Pulse Rate [Left Radial] 104 Pulse Rate 115 Respiratory Rate 18 Blood Pressure [Left Arm] 148/81 Blood Pressure 155/91 O2 Sat by Pulse Oximetry 100 Oriented: Normal Eyes: Normal Ear: Normal Nose: Normal Throat: Normal Respiratory: Clear Throughout Cardiovascular: Normal Auscultation: Bowel Sounds: Normal Palpation: Normal Tenderness: Normal Skin: Normal Musculoskeletal: Right and Knee (mild swelling ) Psychiatric: Normal Mood Description: Calm and Appropriate Affect: Normal Speech Pattern: Clear and Appropriate Assessment/Plan (1) Symptomatic anemia: Status: Acute (2) Iron deficiency anemia: Qualifiers: Iron deficiency anemia type: unspecified iron deficiency Qualified Code(s): D50.9 - Iron deficiency anemia, unspecified Status: Acute (3) Shortness of breath: Status: Resolved (4) Essential hypertension: Status: Acute (5) Diabetes: Qualifiers: Diabetes mellitus complication status: without complication Diabetes mellitus longterm insulin use: without longterm use Diabetes mellitus type: type 2 Qualified Code(s): E11.9 - Type 2 diabetes mellitus without complications Status: Acute (6) Hx of coronary artery disease: Status: Chronic Review H&P Reviewed: Yes Patient was examined?: Yes
[2020-07-26] MEDS ORDERED: HumuLIN R SC PRN (16:48)
[2020-07-26 20:00] LABS: HEMATOCRIT 30.1 % (36.0-47.0)
[2020-07-27 06:02] LABS: BASOPHILS # (AUTO) 0.2 X10^3/uL (0.0-0.1); BASOPHILS % (AUTO) 1.2 % (0.2-1.0); EOSINOPHILS # (AUTO) 0.3 x10^3/uL (0.0-0.2); EOSINOPHILS % (AUTO) 2.4 % (0.9-2.9); HEMATOCRIT 32.1 % (36.0-47.0); HEMOGLOBIN 9.4 g/dL (12.0-16.0); LYMPHOCYTES % (AUTO) 21.6 % (21.0-51.0); MEAN CORPUSCULAR HEMOGLOBIN 17.6 pg (27.0-34.0); MEAN CORPUSCULAR HGB CONC 29.4 g/dL (33.0-35.0); MEAN PLATELET VOLUME 8.7 fL (7.4-11.0); MONOCYTES # (AUTO) 0.7 x10^3/uL (0.3-0.8); MONOCYTES % (AUTO) 4.8 % (0.0-13.0); NEUTROPHILS # (AUTO) 9.8 x10^3/uL (2.2-4.8); PLATELET COUNT 767 X10^3/uL (150.0-450.0); RED BLOOD COUNT 5.35 X10^6/uL (3.5-5.4); RED CELL DISTRIBUTION WIDTH 27.2 % (11.6-16.5)
[2020-07-27 06:51] LABS: HYPOCHROMASIA 2+; PLATELET MORPHOLOGY COMMENT NORMAL (NORMAL)
[2020-07-27 06:52] LABS: ALANINE AMINOTRANSFERASE 18 Units/L (12-78); ALBUMIN 3.6 g/dL (3.4-5.0); ALKALINE PHOSPHATASE 77 Units/L (46-116); ANISOCYTOSIS 3+; ASPARTATE AMINO TRANSFERASE 14 Units/L (15-37); BLOOD UREA NITROGEN 7 mg/dL (7-18); CALCIUM 9.3 mg/dL (8.5-10.1); CARBON DIOXIDE 24.6 mmol/L (21-32); CHLORIDE 99 mmol/L (98-107); COR NA(FOR HYPERGLY) 142 mmol/L (136-145); CREATININE 0.73 mg/dL (0.55-1.02); MICROCYTOSIS 2+; POIKILOCYTOSIS SLIGHT; SODIUM 137 mmol/L (136-145); TOTAL PROTEIN 8.2 g/dL (6.4-8.2); eGFR NON BLACK RACES > 60 (>60)
[2020-07-27] MEDS ORDERED: GLUCOTROL XL 24-HR PO SCH (08:00)
[2020-07-27] MEDS ORDERED: ZESTRIL TAB 20 MG ONE (08:13)
[2020-07-27] MEDS ORDERED: GLUCOPHAGE ONE (08:18)
[2020-07-27] MEDS ORDERED: GLUCOPHAGE PO SCH (09:00)
[2020-07-27] MEDS ORDERED: NS 100 ML IV 100 ML with VENOFER 400 MG IV NR ×2 (09:00)
[2020-07-27] MEDS: HEMOCYTE-PLUS PO SCH (09:02)
[2020-07-27] MEDS: ZESTRIL TAB 20 MG PO SCH (09:02)
[2020-07-27] MEDS: NS 1000 ML 1,000 ML IV SCH (10:09)
--- NOTE | 2020-07-27 10:54 | W.DIS.FURT ---
Summary of Discharge Discharge Summary of Date Date of Exam: 07/27/20 Admission Date Date of Admission: 07/26/20 Admission Diagnosis Patient Problems (Updated 07/28/20 @ 17:06 by Lila Avitia) Anemia (Acute) D64.9 Dizziness (Acute) R42 Near syncope (Acute) R55 Hospital Course: Ms. Thrasher is a 44y/o female with a PMH of iron deficiency anemia, HTN, Type 2 DM, CAD, CHF presented with dizziness and weakness. She states she was at work when she noticed that she became very dizzy and almost passed out. She states this has happened before when her Hgb was really low and she had to be admitted for transfusions about 6 months ago. She reports worsening dyspnea on exertion. She denies chest pain. Denies GI Sx. Denies active bleeding. She does not have a PCP. She reports taking metformin BID and lisinopril 20 mg BID. She also takes iron supplements daily. She states she had a cath years ago but no stent was placed and she was told she has CHF. She has not seen cardiology recently. In the ER, CT head and CXR were negative. Labs showed Hgb 7.1, normal renal function and elevated glucose. Patient was started on blood tranfusion with 2 units PRBCs. Anemia panel showed low ferritin, normal folate and B12. Patient denied active bleeding or melena. Patient was also started on SSI to control hyperglycemia. ECHO was done which showed EF 63% with Grade I diastolic dysfunction, normal IVC. Patient's labs were monitored daily and electrolytes replaced as needed. Patient tolerated the transfusion well and Hgb improved to 9.1. She also received one dose of Venofer. Patient's A1C was 11 so her metf ormin dose was increased to 1000 mg BID and Glipizide was added. She was told to increase her iron supplement to TID.Patient was advised to follow up with PCP. She would like to see Dr. Hunt outpatient. She was stable for discharge. Vital Signs: Vital Signs (72 hours) 07/26/20 04:58 07/26/20 05:00 07/26/20 05:55 Temperature 98.7 F Pulse Rate 117 H 115 H Pulse Rate [Left Radial] Respiratory Rate 20 20 Blood Pressure 165/97 155/91 Blood Pressure [Left Arm] O2 Sat by Pulse Oximetry 100 07/26/20 08:00 07/26/20 12:00 07/26/20 16:00 Temperature 97.7 F 98.5 F 98.8 F Pulse Rate Pulse Rate [Left Radial] 105 H 104 H 99 H Respiratory Rate 20 18 16 Blood Pressure Blood Pressure [Left Arm] 182/96 148/81 138/65 O2 Sat by Pulse Oximetry 98 100 97 07/26/20 20:00 07/26/20 23:37 07/27/20 03:26 Temperature 98.6 F 97.9 F 98.3 F Pulse Rate Pulse Rate [Left Radial] 100 H 94 H 94 H Respiratory Rate 19 22 20 Blood Pressure Blood Pressure [Left Arm] 160/78 178/80 153/73 O2 Sat by Pulse Oximetry 100 97 96 07/27/20 07:50 Temperature 98.3 F Pulse Rate Pulse Rate [Left Radial] 96 H Respiratory Rate 18 Blood Pressure Blood Pressure [Left Arm] O2 Sat by Pulse Oximetry 99 Labs: Laboratory Last Values WBC 14.0 X10^3/uL (3.6-10.0) H 07/27/20 05:26 RBC 5.35 X10^6/uL (3.5-5.4) 07/27/20 05:26 Hgb 9.4 g/dL (12.0-16.0) L 07/27/20 05:26 Hct 32.1 % (36.0-47.0) L 07/27/20 05:26 MCV 60.0 fL (80.0-100.0) L 07/27/20 05:26 MCH 17.6 pg (27.0-34.0) L 07/27/20 05:26 MCHC 29.4 g/dL (33.0-35.0) L 07/27/20 05:26 RDW 27.2 % (11.6-16.5) H 07/27/20 05:26 Plt Count 767 X10^3/uL (150.0-450.0) H 07/27/20 05:26 Plt Count Comment Increased (ADEQUATE) A 07/27/20 05:26 MPV 8.7 fL (7.4-11.0) 07/27/20 05:26 Neut % (Auto) 70.0 % (42.0-75.0) 07/27/20 05:26 Lymph % (Auto) 21.6 % (21.0-51.0) 07/27/20 05:26 [place] % (Auto) 4.8 % (0.0-13.0) 07/27/20 05:26 Eos % (Auto) 2.4 % (0.9-2.9) 07/27/20 05:26 Baso % (Auto) 1.2 % (0.2-1.0) H 07/27/20 05:26 Neut # (Auto) 9.8 x10^3/uL (2.2-4.8) H 07/27/20 05:26 Lymph # (Auto) 3.0 X10^3/uL (1.3-2.9) H 07/27/20 05:26 [place] # (Auto) 0.7 x10^3/uL (0.3-0.8) 07/27/20 05:26 Eos # (Auto) 0.3 x10^3/uL (0.0-0.2) H 07/27/20 05:26 Baso # (Auto) 0.2 X10^3/uL (0.0-0.1) H 07/27/20 05:26 Absolute Nucleated RBC 0.3 /100WBC 07/27/20 05:26 Plt Morphology Comment Normal (NORMAL) 07/27/20 05:26 RBC Morphology Abnormal (NORMAL) A 07/27/20 05:26 Hypochromasia 2+ A 07/27/20 05:26 Poikilocytosis Slight A 07/27/20 05:26 Anisocytosis 3+ A 07/27/20 05:26 Microcytosis 2+ A 07/27/20 05:26 Ovalocytes Slight A 07/26/20 05:24 Sodium 137 mmol/L (136-145) 07/27/20 05:26 Corrected Sodium 142 mmol/L (136-145) 07/27/20 05:26 Potassium 3.5 mmol/L (3.5-5.1) 07/27/20 05:26 Chloride 99 mmol/L (98-107) 07/27/20 05:26 Carbon Dioxide 24.6 mmol/L (21-32) 07/27/20 05:26 BUN 7 mg/dL (7-18) 07/27/20 05:26 Creatinine 0.73 mg/dL (0.55-1.02) 07/27/20 05:26 Est GFR (MDRD) Af Amer > 60 (>60) 07/27/20 05:26 Est GFR (MDRD) Non-Af > 60 (>60) 07/27/20 05:26 Glucose 306 mg/dL (65-99) H 07/27/20 05:26 POC Glucose (mg/dL) 281 mg/dL (65-99) H 07/27/20 05:25 Hemoglobin A1c 11.0 % 07/26/20 14:12 Calcium 9.3 mg/dL (8.5-10.1) 07/27/20 05:26 Corrected Calcium TNP 07/27/20 05:26 Iron 176 ug/dL (50-175) H 07/26/20 14:12 Transferrin 327 mg/dL (202-364) 07/26/20 14:12 Ferritin 3 ng/mL (8-252) L 07/26/20 14:12 Total Bilirubin 1.20 mg/dL (0.2-1.0) H 07/27/20 05:26 AST 14 Units/L (15-37) L 07/27/20 05:26 ALT 18 Units/L (12-78) 07/27/20 05:26 Alkaline Phosphatase 77 Units/L (46-116) 07/27/20 05:26 Creatine Kinase 91 Units/L (26-192) 07/26/20 05:24 CK-MB (CK-2) < 1.0 ng/mL (0-4.0) 07/26/20 05:24 CK/CKMB % Calc 1.1 % (<4) 07/26/20 05:24 Troponin I 0.04 ng/mL (0-1.5) 07/26/20 05:24 Total Protein 8.2 g/dL (6.4-8.2) 07/27/20 05:26 Albumin 3.6 g/dL (3.4-5.0) 07/27/20 05:26 Globulin 4.6 g/dL (2.5-4.5) H 07/27/20 05:26 Albumin/Globulin Ratio 0.8 Ratio (1.1-2.1) L 07/27/20 05:26 Vitamin B12 416 pg/mL (193-986) 07/26/20 14:12 Folate 18.9 ng/mL (>8.6) 07/26/20 14:12 Specimen Type Clean catch urine 07/26/20 06:42 Urine Color Yellow (YELLOW) 07/26/20 06:42 Urine Appearance Clear (CLEAR) 07/26/20 06:42 Urine pH 5.0 (5.0 - 8.0) 07/26/20 06:42 Ur Specific [place] 1.015 (1.000-1.030) 07/26/20 06:42 Urine Protein Negative (NEGATIVE) 07/26/20 06:42 Urine Glucose (UA) 4+ (NEGATIVE) 07/26/20 06:42 Urine Ketones 3+ (NEGATIVE) 07/26/20 06:42 Urine Occult Blood Negative (NEGATIVE) 07/26/20 06:42 Urine Nitrite Negative (NEGATIVE) 07/26/20 06:42 Urine Bilirubin Negative (NEGATIVE) 07/26/20 06:42 Urine Urobilinogen Normal (NORMAL) 07/26/20 06:42 Ur Leukocyte Esterase Negative (NEGATIVE) 07/26/20 06:42 SARS CoV-2 RNA Rapid CHRISTA Negative (NEGATIVE) 07/26/20 06:57 Blood Type O POSITIVE 07/26/20 06:57 Antibody Screen Negative 07/26/20 06:57 Crossmatch See Detail 07/26/20 06:57 Reason For Visit: ANEMIA,DIZZINESS AND NEAR SYNCOPY Discharge Date Discharge Date: 07/27/20 Discharge Diagnosis All Active Problems (Updated 07/28/20 @ 17:06 by Lila Avitia) Diabetes (Acute) Iron deficiency anemia (Acute) History of anemia (Chronic) Hypertension (Acute) History of [place] (myocardial infarction) (Chronic) History of angina (Chronic) Hx of coronary artery disease (Chronic) Hypokalemia (Acute) Symptomatic anemia (Acute) Hyperglycemia (Chronic) Essential hypertension (Chronic) Cardiomegaly (Acute) Hypokalemia (Acute) Hypertension (Acute) Accelerated essential hypertension (Acute) Acute on chronic anemia (Acute) Anemia (Acute) Dizziness (Acute) Near syncope (Acute) Plan of Treatment: Continue with present treatment and follow up plan. Pt is to keep follow up appointment as instructed and take medications as ordered. Discharge Medications Discharge Medications: No Known Drug Allergies Allergy (Verified 12/05/19 09:34) CONTINUE taking the following medications lisinopril 20 mg PO BID 07/26/20 [History] New Prescriptions ferrous sulfate [iron] 325 mg PO TID 30 Days #90 tab 07/27/20 [Rx] glipizide 5 mg PO DAILYWB 30 Days #30 tab 07/27/20 [Rx] metformin 1,000 mg PO BID 30 Days #60 tab 07/27/20 [Rx] Follow up and Referral Follow Up: 1 Week (PCP) Discharge Disposition Assessment: Stable no acute distress noted at time of discharge. Discharge Disposition: Home Discharge Condition: Stable Discharge Plan Discharge Plan Hospital Course: Ms. Thrasher is a 44y/o female with a PMH of iron deficiency anemia, HTN, Type 2 DM, CAD, CHF presented with dizziness and weakness. She states she was at work when she noticed that she became very dizzy and almost passed out. She states this has happened before when her Hgb was really low and she had to be admitted for transfusions about 6 months ago. She reports worsening dyspnea on exertion. She denies chest pain. Denies GI Sx. Denies active bleeding. She does not have a PCP. She reports taking metformin BID and lisinopril 20 mg BID. She also takes iron supplements daily. She states she had a cath years ago but no stent was placed and she was told she has CHF. She has not seen cardiology recently. In the ER, CT head and CXR were negative. Labs showed Hgb 7.1, normal renal function and elevated glucose. Patient was started on blood tranfusion with 2 units PRBCs. Anemia panel showed low ferritin, normal folate and B12. Patient denied active bleeding or melena. Patient was also started on SSI to control hyperglycemia. ECHO was done which showed EF 63% with Grade I diastolic dysfunction, normal IVC. Patient's labs were monitored daily and electrolytes replaced as needed. Patient tolerated the transfusion well and Hgb improved to 9.1. She also received one dose of Venofer. Patient's A1C was 11 so her metformin dose was increased to 1000 mg BID and Glipizide was added. She was told to increase her iron supplement to TID.Patient was advised to follow up with PCP. She would like to see Dr. Hunt outpatient. She was stable for discharge. Patient Disposition: 01 HOME, SELF-CARE Condition: Stable Health Concerns: Post Hospitalization: new medications and changes needed to prevent readmission or further decline. Pt educated and given instructions on all concerns. Care Plan Goals: Problem: Activity Intolerance Goal: Increased tolerance to activity Instructions: Follow provided instructions. Follow up with primary physician as directed. Contact primary care physician or report to the closest Emergency Room if condition worsens. Plan of Treatment: Continue with present treatment and follow up plan. Pt is to keep follow up appointment as instructed and take medications as ordered. Assessment: Stable no acute distress noted at time of discharge. Prescription drug monitoring program results: PDMP reviewed and no concerns identified Prescriptions: New glipizide 5 mg Tablet Extended Release 24hr 5 mg PO DAILYWB 30 Days Qty: 30 RF: 1 metformin 1,000 mg tablet 1,000 mg PO BID 30 Days Qty: 60 RF: 1 Continued lisinopril 20 mg Tablet 20 mg PO BID RF: 0 Changed ferrous sulfate [iron] 325 mg (65 mg iron) Tablet 325 mg PO TID 30 Days Qty: 90 RF: 1 Discontinued metformin 500 mg tablet 500 mg PO BID RF: 0 Orders to Discharge Patient Discharge Orders: Discharge (Routine); Ordered 07/27/20 Ordered By: Lila Avitia Follow ups/Referrals Follow ups/Referrals: Romaine Hunt [STAFF PHYSICIAN] - 07/27/20 10:15 am (Patient given new patient packet. Patient to complete packet and return to Dr. Hendricks office and office staff will set up appointment for follow up.) NFD,None [Primary Care Provider] - 3 days Instructions Instructions: Type 2 Diabetes Mellitus, Diagnosis, Adult, Shortness of Breath, Adult, [id number], Anemia, Preventing Iron Deficiency Anemia, Adult, Form - Daily Diabetes Record, Near-Syncope, [id number], Hypertension, [id number], Form - Blood Pressure Record Sheet, Dizziness, [id number], Iron-Rich Diet, Managing Your Hypertension Activity Restrictions/Additional Instructions: Follow up with primary care within one week Check blood glucose in the morning and evening prior to taking medications Check blood pressure daily, take log to appointment. Stand Alone Forms: Excuse From Work or School, Precautions for COVID19, Patient Portal, Social Distancing
[2020-07-27 11:45] LABS: HEMOGLOBIN 8.8 g/dL (12.0-16.0)
[2020-07-27 11:57] VITALS: BP 192/84
[2020-07-27] MEDS ORDERED: SNACK - Diabetic Appropriate PO SCH (20:00)
== END 2020-07-27 13:20 | disposition home or self-care (01) ==
LOC: ER 04:57 → MED/SURG 04:57
PROVIDERS: ADMIT Internal Medicine; ATTEND Internal Medicine
DX: R06.02 Shortness of breath; R42 Dizziness and giddiness; D50.8 Other iron deficiency anemias; R26.89 Other abnormalities of gait and mobility; Z20.822 Contact with and (suspected) exposure to COVID-19; I10 Essential (primary) hypertension; R55 Syncope and collapse; E11.65 Type 2 diabetes mellitus with hyperglycemia; Z86.19 Personal history of other infectious and parasitic diseases; I25.10 Atherosclerotic heart disease of native coronary artery without angina pectoris

== ENCOUNTER 2021-10-31 23:50 | Observation (INO) ==
--- NOTE | 2021-11-01 00:26 | DR.CP ---
HPI Time Seen Time Seen by Provider: 11/01/21 00:26 PCP Primary Care Physician: TINY DODD Comment HPI Comment: PATIENT IS 46YR OLD FEMALE WITH HISTORY OF CAD, DM, HYPERTENSION IN ER COMPLAINING OF ELEVATED BP, CHEST PAIN AND HEADACHE TIMES 2 DAYS. PAIN IS CHEST CHEST IS SUBSTERNAL PRESSURE AND HEADACHE IS THROBBING. PAIN IS NONRADIATING. TOOK HER BP MEDICATION PRESCRIBED TO HER BUT BP 233/130 IN ER. PATIENT IS NAUSEATED. DENIES VOMITING, DYSURIA OR DIARRHEA. DENIES TRAUMA. Complaint Chief Complaint Doctor Comments: eELEVATED BP, CHEST PAIN AND HEADACHE TIMES 2 DAYS. Chief Complaint:: PT AMBULATORY IN ED WITH C/O ELEVATED BP 233/130, NAUSEA, HEADACHE AND CHEST PAIN X 2 DAYS. PT STATES SHE WENT TO PRIMARY CARE TODAY AND HE INCREASED HER BP MEDS. COVID-19 Coronavirus risk:travel/contact w/high risk person: No Has patient experienced Coronavirus symptoms: No Reviewed Nurses Notes Review: Yes Source History Provided: Patient Mode of Arrival Mode of Arrival: Ambulatory Timing Onset of Chief Complaint: 10/30/21 Came on: Suddenly Pain: Present Now Duration Duration: Constant How lon Duration: Days Location Location of Chest Pain: Chest (SUBSTERNAL.) Chest Pain Radiation Location: None Context Onset: At rest Cardiac Risk Factors: Family History, Hyperlipidemia, HTN and Diabetes PE Risk Factors: None Prehospital Care: None Quality Quality: Pressure like and Other (THROBBING.) Severity Severity: Severe Modifying Factors Worsens: Exertion Associated Signs and Symptoms Associated Signs and Symptoms: Shortness of Breath and Nausea/Vomiting PMH PMH Past Medical History: Yes Past Medical History: Anemia, Arthritis, CHF, Coronary Artery Disease, Diabetes, Hypertension and [place] Past Medical History Comment: PULMONARY EMBOLUS Past Surgical History: Yes Surgical History: Family History History of Family Medical Conditions: Yes Family Medical History: Diabetes Mellitus, Cancer, [place], Coronary Artery Disease, Heart Failure and Hypertension Social History Does patient currently use any type of tobacco product: No Have you used tobacco products in the last 12 months: No Type of Tobacco Use: None Does any household member use tobacco: No Alcohol Use: None Do you use any recreational Drugs:: No Lives With: Family Lives Where: Home Travel Risk Coronavirus risk:travel/contact w/high risk person: No Has patient experienced Coronavirus symptoms: No Infectious screening In the last 2 months have you had wt loss of >10#?: NO Have you had fever, night sweats or hemotysis?: No Have you traveled outside the country in the last 6 months?: No Isolation: Standard ROS Review of Systems Constitutional: See HPI, Weakness and Fatigue; negative Fever Eyes: No Symptoms Reported and See HPI; negative Blurred Vision ENTM: No Symptoms Reported and See HPI; negative Nose Discharge or Nose Congestion Respiratoy: No Symptoms Reported and See HPI Cardiovascular: See HPI, Chest Pain and Palpitations Gastrointestinal/Abdominal: See HPI and Nausea; negative Abdominal Pain, Diarrhea or Vomiting Genitourinary: No Symptoms Reported and See HPI; negative Dysuria Neurological: See HPI, Headache and Weakness Musculoskeletal: No Symptoms Reported and See HPI; negative Back Pain Integumentary: No Symptoms Reported and See HPI; negative Change in Color, Rash or Juandice Hematologic/Lymphatic: See HPI and Easy Bruising Endocrine: No Symptoms Reported and See HPI; negative Increased Thirst or Increased Urine Psychiatric: No Symptoms Reported and See HPI All Other Systems: Reviewed and Negative PE Vitals Vitals: Temperature 98.2 F Pulse Rate 85 Respiratory Rate 25 Blood Pressure [Left Arm] 172/85 Blood Pressure [Right Arm] 156/78 Blood Pressure 136/81 O2 Sat by Pulse Oximetry 99 General Limitations: No Limitations General Appearance: Alert and In No Apparent Distress Head Head Exam: Normal Inspection Eyes Eye exam: Normal Appearance and PERRL; negative Scleral Icterus or Conjunctival Injection ENT ENT Exam: Normal Exam, Normal Oropharynx, Normal External Ear Exam and TM's Normal Bilaterally Chest Chest Inspection: Normal Inspection and Symmetric Chest Wall Rise; negative Tenderness Respiratory Respiratory Exam: Normal Lung Sounds Bilat; negative Accessory Muscle Use, Chest Wall Tenderness or Respiratory Distress Respiratory Exam: Bilateral: Clear to Auscultation Cardiovascular Cardiovascular Exam: Regular Rate, Normal Rhythm and Normal Heart Sounds; negative Systolic Murmur or Diastolic Murmur Pulse: Normal Edema: 1 Abdominal Exam Abdominal Exam: Normal Bowel Sounds and Soft; negative Tenderness Extremities Extremities Exam: Normal Inspection and Normal Capillary Refill Back Back Exam: Normal Inspection; negative (R) CVA Tenderness or (L) CVA Tenderness Neurologic Neurological Exam: Alert, Oriented X3 and CN II-XII Intact; negative Motor Sensory Deficit Psychiatric Psychiatric Exam: Normal Affect and Normal Mood Skin Skin Exam: Intact MDM Differential Diagnosis Differential Diagnosis: Angina, CHF, Myocardial Infarction, Pericarditis, Pneumonia and Pneumothorax COURSE Treatment Treatment: SEE ORDERS DONE WHILE PATIENT WAS IN ER. CLONIDINE 0.2MG PO. BP 204/110. STILL HAVING HEADACHE AND CHEST PRESSURE. HIDRALAZINE 10MG IV. BP IMPTOVED. LABS DISCUSSED WITH PATIENT AND XRAY REPORT. TROPONIN ELEVATED. PATIENT ADMITTED TO HOSPITAL FOR OBBSERVATION. Reevaluation 1st: Unchanged 2nd: Improved Consultation Consultation Comments: DISCUSSED PATIENT WITH DR. ROBERT. HE WILL ADMIT PATIENT. Education/Counseling Education/Counseling: Patient Educated On: Diagnosis ROR Labs Reviewed Laboratory Results Reviewed?: Yes Result Diagrams: 11/01/21 00:43 11/01/21 00:43 Laboratory: WBC 8.7 X10^3/uL (3.6-10.0) 11/01/21 00:43 RBC 4.85 X10^6/uL (3.5-5.4) 11/01/21 00:43 Hgb 11.5 g/dL (12.0-16.0) L 11/01/21 00:43 Hct 35.9 % (36.0-47.0) L 11/01/21 00:43 MCV 73.9 fL (80.0-100.0) L 11/01/21 00:43 MCH 23.7 pg (27.0-34.0) L 11/01/21 00:43 MCHC 32.1 g/dL (33.0-35.0) L 11/01/21 00:43 RDW 17.8 % (11.6-16.5) H 11/01/21 00:43 Plt Count 423 X10^3/uL (150.0-450.0) 11/01/21 00:43 Plt Count Comment Adequate (ADEQUATE) 11/01/21 00:43 MPV 8.0 fL (7.4-11.0) 11/01/21 00:43 Neut % (Auto) 66.7 % (42.0-75.0) 11/01/21 00:43 Lymph % (Auto) 25.8 % (21.0-51.0) 11/01/21 00:43 [place] % (Auto) 4.4 % (0.0-13.0) 11/01/21 00:43 Eos % (Auto) 2.6 % (0.9-2.9) 11/01/21 00:43 Baso % (Auto) 0.5 % (0.2-1.0) 11/01/21 00:43 Neut # (Auto) 5.8 x10^3/uL (2.2-4.8) H 11/01/21 00:43 Lymph # (Auto) 2.3 X10^3/uL (1.3-2.9) 11/01/21 00:43 [place] # (Auto) 0.4 x10^3/uL (0.3-0.8) 11/01/21 00:43 Eos # (Auto) 0.2 x10^3/uL (0.0-0.2) 11/01/21 00:43 Baso # (Auto) 0.0 X10^3/uL (0.0-0.1) 11/01/21 00:43 Absolute Nucleated RBC 0.0 /100WBC 11/01/21 00:43 Plt Morphology Comment Normal (NORMAL) 11/01/21 00:43 RBC Morphology Abnormal (NORMAL) A 11/01/21 00:43 Hypochromasia 1+ A 11/01/21 00:43 Anisocytosis Slight A 11/01/21 00:43 Microcytosis Slight A 11/01/21 00:43 Ovalocytes Slight A 11/01/21 00:43 Sodium 138 mmol/L (136-145) 11/01/21 00:43 Corrected Sodium 139 mmol/L (136-145) 11/01/21 00:43 Potassium 3.2 mmol/L (3.5-5.1) L 11/01/21 00:43 Chloride 99 mmol/L (98-107) 11/01/21 00:43 Carbon Dioxide 28.1 mmol/L (21-32) 11/01/21 00:43 BUN 10 mg/dL (7-18) 11/01/21 00:43 Creatinine 0.71 mg/dL (0.55-1.02) 11/01/21 00:43 Est GFR (MDRD) Af Amer > 60 (>60) 11/01/21 00:43 Est GFR (MDRD) Non-Af > 60 (>60) 11/01/21 00:43 Glucose 158 mg/dL (65-99) H 11/01/21 00:43 Calcium 8.8 mg/dL (8.5-10.1) 11/01/21 00:43 Corrected Calcium TNP 11/01/21 00:43 Magnesium 1.3 mg/dL (1.7-2.9) L 11/01/21 00:43 Total Bilirubin 0.50 mg/dL (0.2-1.0) 11/01/21 00:43 AST 7 Units/L (15-37) L 11/01/21 00:43 ALT 11 Units/L (12-78) L 11/01/21 00:43 Alkaline Phosphatase 76 Units/L (46-116) 11/01/21 00:43 Creatine Kinase 47 Units/L (26-192) 11/01/21 00:43 Troponin I High Sens 153.8 ng/L (4.0-60.0) H* 11/01/21 00:43 Total Protein 7.9 g/dL (6.4-8.2) 11/01/21 00:43 Albumin 3.5 g/dL (3.4-5.0) 11/01/21 00:43 Globulin 4.4 g/dL (2.5-4.5) 11/01/21 00:43 Albumin/Globulin Ratio 0.8 Ratio (1.1-2.1) L 11/01/21 00:43 SARS-CoV-2 (PCR) Negative (NEGATIVE) 11/01/21 02:03 XRAY XRAY Interpreted by: Radiologist (REPORT NOTED.) and Self EKG Rate: 87 [place]: Normal Rhythm: NSR Block: None Hypertrophy: None ST: Inf (AGE UNDERTERMINED.) and Infarct Opioid Opioid Risk Tool Age (Beau box if 16-45): No History of Preadolescent Sexual Abuse: No Total: 0 Total Score Risk Category: Low Risk Copyright: James LEAL predicting aberrant behaviors Discharge Plan Diagnosis Discharge Problem: Hypertensive emergency, Elevated troponin, Chest pain Discharge Plan Patient Disposition: ADMITTED INPATIENT Condition: Stable
[2021-11-01] MEDS ORDERED: CATAPRES TAB 0.2 MG PO ONE (00:35)
[2021-11-01] MEDS ORDERED: CATAPRES TAB 0.2 MG ONE (00:38)
[2021-11-01 00:51] LABS: BASOPHILS % (AUTO) 0.5 % (0.2-1.0); EOSINOPHILS # (AUTO) 0.2 x10^3/uL (0.0-0.2); EOSINOPHILS % (AUTO) 2.6 % (0.9-2.9); HEMATOCRIT 35.9 % (36.0-47.0); HEMOGLOBIN 11.5 g/dL (12.0-16.0); LYMPHOCYTES # (AUTO) 2.3 X10^3/uL (1.3-2.9); LYMPHOCYTES % (AUTO) 25.8 % (21.0-51.0); MEAN CORPUSCULAR HEMOGLOBIN 23.7 pg (27.0-34.0); MEAN CORPUSCULAR HGB CONC 32.1 g/dL (33.0-35.0); MEAN CORPUSCULAR VOLUME 73.9 fL (80.0-100.0); MONOCYTES # (AUTO) 0.4 x10^3/uL (0.3-0.8); MONOCYTES % (AUTO) 4.4 % (0.0-13.0); NEUTROPHILS # (AUTO) 5.8 x10^3/uL (2.2-4.8); NEUTROPHILS % (AUTO) 66.7 % (42.0-75.0); RED BLOOD COUNT 4.85 X10^6/uL (3.5-5.4); RED CELL DISTRIBUTION WIDTH 17.8 % (11.6-16.5); WHITE BLOOD COUNT 8.7 X10^3/uL (3.6-10.0)
[2021-11-01 01:16] LABS: ANISOCYTOSIS SLIGHT; HYPOCHROMASIA 1+; MICROCYTOSIS SLIGHT; PLATELET MORPHOLOGY COMMENT NORMAL (NORMAL)
[2021-11-01 01:23] LABS: ALANINE AMINOTRANSFERASE 11 Units/L (12-78); ALBUMIN 3.5 g/dL (3.4-5.0); ALKALINE PHOSPHATASE 76 Units/L (46-116); ASPARTATE AMINO TRANSFERASE 7 Units/L (15-37); BLOOD UREA NITROGEN 10 mg/dL (7-18); CALCIUM 8.8 mg/dL (8.5-10.1); CARBON DIOXIDE 28.1 mmol/L (21-32); CHLORIDE 99 mmol/L (98-107); COR NA(FOR HYPERGLY) 139 mmol/L (136-145); CREATINE KINASE 47 Units/L (26-192); CREATININE 0.71 mg/dL (0.55-1.02); SODIUM 138 mmol/L (136-145); TOTAL PROTEIN 7.9 g/dL (6.4-8.2); eGFR NON BLACK RACES > 60 (>60)
[2021-11-01 01:25] LABS: OVALOCYTES SLIGHT
[2021-11-01] MEDS ORDERED: APRESOLINE INJ 20 MG VIAL IVP ONE (01:45)
[2021-11-01] MEDS ORDERED: APRESOLINE INJ 20 MG VIAL ONE (01:46)
--- NOTE | 2021-11-01 02:00 | RAD ---
HISTORYPT AMBULATORY IN ED WITH C/O ELEVATED BP 233/130, NAUSEA, HEADACHE AND CHEST PAIN X 2 DAYS. PT STATES SHE WENT TO PRIMARY CARE TODAY AND HE INCREASED HER BP MEDS.STUDYCHEST, 1 VIEWCOMPARISONJuly 2021.TECHNIQUEA single frontal view of the chest was obtained.FINDINGSThere are multiple EKG leads and wires seen overlying the patient. There is mild to moderate cardiomegaly. There is no focal infiltrate. There is no effusion. There is no pneumothorax. The osseous structures are intact.IMPRESSIONNo focal infiltrate or effusion.Electronically signed by: Narcisa Chapman (Nov 01, 2021 01:59:04)
[2021-11-01] MEDS ORDERED: CATAPRES TAB 0.1 MG PO ONE (05:02)
[2021-11-01 05:34] LABS: BASOPHILS # (AUTO) 0.1 X10^3/uL (0.0-0.1); BASOPHILS % (AUTO) 0.7 % (0.2-1.0); EOSINOPHILS # (AUTO) 0.1 x10^3/uL (0.0-0.2); EOSINOPHILS % (AUTO) 1.3 % (0.9-2.9); HEMATOCRIT 33.8 % (36.0-47.0); LYMPHOCYTES # (AUTO) 2.3 X10^3/uL (1.3-2.9); LYMPHOCYTES % (AUTO) 24.1 % (21.0-51.0); MEAN CORPUSCULAR HEMOGLOBIN 23.7 pg (27.0-34.0); MEAN CORPUSCULAR HGB CONC 32.4 g/dL (33.0-35.0); MEAN CORPUSCULAR VOLUME 73.2 fL (80.0-100.0); MEAN PLATELET VOLUME 8.3 fL (7.4-11.0); MONOCYTES # (AUTO) 0.3 x10^3/uL (0.3-0.8); MONOCYTES % (AUTO) 3.2 % (0.0-13.0); NEUTROPHILS # (AUTO) 6.9 x10^3/uL (2.2-4.8); NEUTROPHILS % (AUTO) 70.7 % (42.0-75.0); RED BLOOD COUNT 4.61 X10^6/uL (3.5-5.4); RED CELL DISTRIBUTION WIDTH 17.9 % (11.6-16.5); WHITE BLOOD COUNT 9.7 X10^3/uL (3.6-10.0)
[2021-11-01 06:03] LABS: ALANINE AMINOTRANSFERASE 10 Units/L (12-78); ALBUMIN 3.4 g/dL (3.4-5.0); ALKALINE PHOSPHATASE 69 Units/L (46-116); ASPARTATE AMINO TRANSFERASE 8 Units/L (15-37); BLOOD UREA NITROGEN 10 mg/dL (7-18); CALCIUM 8.8 mg/dL (8.5-10.1); CARBON DIOXIDE 25.4 mmol/L (21-32); CHLORIDE 98 mmol/L (98-107); CHOLESTEROL 112 mg/dL (0-200); COR NA(FOR HYPERGLY) 139 mmol/L (136-145); CREATINE KINASE 44 Units/L (26-192); CREATININE 0.64 mg/dL (0.55-1.02); HDL CHOLESTEROL 37 mg/dL (40-60); SODIUM 137 mmol/L (136-145); TOTAL PROTEIN 7.4 g/dL (6.4-8.2); TRIGLYCERIDES 54 mg/dL (0-150); eGFR NON BLACK RACES > 60 (>60)
[2021-11-01 06:15] LABS: BILIRUBIN,URINE NEGATIVE (NEGATIVE); BLOOD/HEMOGLOBIN,URINE 5+ (NEGATIVE); GLUCOSE, URINE NEGATIVE (NEGATIVE); KETONES,URINE NEGATIVE (NEGATIVE); LEUKOCYTE ESTERASE ,URINE 2+ (NEGATIVE); NITRITES,URINE NEGATIVE (NEGATIVE); PROTEIN,URINE 3+ (NEGATIVE); UROBILINOGEN,URINE NORMAL (NORMAL)
[2021-11-01] MEDS ORDERED: KLOR-CON PO PRN (06:18)
[2021-11-01] MEDS ORDERED: MICRO K EXTEN CAP 10 MEQ PO PRN (06:18)
[2021-11-01] MEDS ORDERED: K-RIDER 10 MEQ/NS 100 ML 10 MEQ/100 ML BAG IV PRN (06:18)
[2021-11-01] MEDS ORDERED: POTASSIUM CHL 60 MEQ/NS 0.45% 500 ML IV PRN (06:18)
[2021-11-01] MEDS ORDERED: K-DUR TAB 20 MEQ PO PRN (06:18)
[2021-11-01] MEDS ORDERED: POTASSIUM CHLORIDE LIQ 20 MEQ UDC PO PRN (06:18)
[2021-11-01] MEDS ORDERED: POTASSIUM CHL 40 MEQ/NS 0.45% 500 ML IV PRN (06:18)
[2021-11-01 06:19] LABS: HYPOCHROMASIA SLIGHT; PLATELET MORPHOLOGY COMMENT NORMAL (NORMAL)
[2021-11-01 06:20] LABS: APPEARANCE,URINE SLIGHTLY HAZY (CLEAR); BACTERIA,URINE TRACE /HPF (NEGATIVE); COLOR,URINE BLOODY (YELLOW); RBC,URINE TNTC /HPF (0-3); SQUAMOUS EPITHELIAL CELL,UR RARE /HPF (NEGATIVE)
[2021-11-01 06:20] LABS: ANISOCYTOSIS SLIGHT; MICROCYTOSIS SLIGHT; OVALOCYTES SLIGHT; TARGET CELLS SLIGHT
[2021-11-01] MEDS: MAGNESIUM SULFATE 1 GRAM/100 mL PREMIX 1 G/100 ML BAG IV PRN ×4 (06:58→11:01)
[2021-11-01] MEDS ORDERED: GLUCOPHAGE ONE ×2 (08:23→20:07)
[2021-11-01 08:25] VITALS: BMI 36.4
[2021-11-01] MEDS: GLUCOPHAGE PO SCH ×2 (08:33→20:46)
[2021-11-01] MEDS: COZAAR PO SCH (08:33)
[2021-11-01] MEDS: ALDACTONE TAB 25 MG PO SCH (08:34)
[2021-11-01] MEDS: FERROUS GLUCONATE PO SCH ×2 (08:34→20:48)
[2021-11-01] MEDS: IMDUR PO SCH (08:34)
[2021-11-01] MEDS: COREG TAB 25 MG PO SCH ×2 (08:51→20:47)
[2021-11-01] MEDS: ELIQUIS PO SCH ×2 (08:52→20:48)
[2021-11-01] MEDS ORDERED: FERROUS SULFATE PO SCH (09:00)
[2021-11-01] MEDS: NovoLIN R (or HumuLIN R) SUBCUT PRN ×3 (11:24→20:51)
--- NOTE | 2021-11-01 13:04 | DR.H&P ---
H&P History & Physical for Day of: H&P Date: 11/01/21 Chief Complaint Chief Complaint: Headache, Hypertension Chest pain Allergies Allergies Allergy/AdvReac Type Severity Reaction Status Date / Time No Known Drug Allergies Allergy Verified 04/27/21 12:18 History of Present Illness History of Present Illness: Pt is a 46 year old female past medical history of Hypertension, Diabetes mellitus, CAD, presenting with headache, chest pain, and elevated blood pressure. In the ED, pt was noted to have hypertensive emergency. Labs/imaging: Wbc 9.7, Hgb 11, Plt 396, Na 137, K 2.8, Creatinine 0.64, Glucose 195, UA negative, Troponin 133, CXR no acute cardiopulmonary findings. She was admitted for blood pressure management and was given Clonidine. Pt is placed on telemetry. Her home blood pressure medications were restarted. Will add clonidine to her blood pressure regimen, she appears to have responded well to it. Her troponin is slightly elevated and she does have history of AR in the past. She was recently in [facility] and was seen by cardiology. She was told to follow up with [facility]'s cardiology-Dr Garrido due to her having cardiac workup at the hospital in [place]. Will consult-Dr Garrido. Continue to closely monitor and follow up labs. Past Medical History Past Medical History: Anemia, Arthritis, CHF, Coronary Artery Disease, Diabetes, Hypertension and AR Past Surgical History Surgical History: Family History Family Medical History: Diabetes Mellitus, Cancer, [place], Coronary Artery Disease and Hypertension Social History Does patient currently use any type of tobacco product: No Have you used tobacco products in the last 12 months: No Type of Tobacco Use: None Does any household member use tobacco: No Alcohol Use: None Drug Use: None Medications Home Medications: No Known Drug Allergies Allergy (Verified 04/27/21 12:18) CONTINUE taking the following medications losartan 50 mg tablet 100 mg PO QDAY 11/01/21 [History] spironolactone 25 mg tablet 25 mg PO QDAY 11/01/21 [History] Labs Result Diagrams: 11/02/21 05:20 11/02/21 05:20 Labs: Laboratory WBC 9.7 X10^3/uL (3.6-10.0) 11/01/21 05:00 RBC 4.61 X10^6/uL (3.5-5.4) 11/01/21 05:00 Hgb 11.0 g/dL (12.0-16.0) L 11/01/21 05:00 Hct 33.8 % (36.0-47.0) L 11/01/21 05:00 MCV 73.2 fL (80.0-100.0) L 11/01/21 05:00 MCH 23.7 pg (27.0-34.0) L 11/01/21 05:00 MCHC 32.4 g/dL (33.0-35.0) L 11/01/21 05:00 RDW 17.9 % (11.6-16.5) H 11/01/21 05:00 Plt Count 396 X10^3/uL (150.0-450.0) 11/01/21 05:00 Plt Count Comment Adequate (ADEQUATE) 11/01/21 05:00 MPV 8.3 fL (7.4-11.0) 11/01/21 05:00 Neut % (Auto) 70.7 % (42.0-75.0) 11/01/21 05:00 Lymph % (Auto) 24.1 % (21.0-51.0) 11/01/21 05:00 [place] % (Auto) 3.2 % (0.0-13.0) 11/01/21 05:00 Eos % (Auto) 1.3 % (0.9-2.9) 11/01/21 05:00 Baso % (Auto) 0.7 % (0.2-1.0) 11/01/21 05:00 Neut # (Auto) 6.9 x10^3/uL (2.2-4.8) H 11/01/21 05:00 Lymph # (Auto) 2.3 X10^3/uL (1.3-2.9) 11/01/21 05:00 [place] # (Auto) 0.3 x10^3/uL (0.3-0.8) 11/01/21 05:00 Eos # (Auto) 0.1 x10^3/uL (0.0-0.2) 11/01/21 05:00 Baso # (Auto) 0.1 X10^3/uL (0.0-0.1) 11/01/21 05:00 Absolute Nucleated RBC 0.0 /100WBC 11/01/21 05:00 Plt Morphology Comment Normal (NORMAL) 11/01/21 05:00 RBC Morphology Abnormal (NORMAL) A 11/01/21 05:00 Hypochromasia Slight A 11/01/21 05:00 Anisocytosis Slight A 11/01/21 05:00 Microcytosis Slight A 11/01/21 05:00 Target Cells Slight A 11/01/21 05:00 Ovalocytes Slight A 11/01/21 05:00 Sodium 137 mmol/L (136-145) 11/01/21 05:00 Corrected Sodium 139 mmol/L (136-145) 11/01/21 05:00 Potassium 3.8 mmol/L (3.5-5.1) 11/01/21 09:16 Chloride 98 mmol/L (98-107) 11/01/21 05:00 Carbon Dioxide 25.4 mmol/L (21-32) 11/01/21 05:00 BUN 10 mg/dL (7-18) 11/01/21 05:00 Creatinine 0.64 mg/dL (0.55-1.02) 11/01/21 05:00 Est GFR (MDRD) Af Amer > 60 (>60) 11/01/21 05:00 Est GFR (MDRD) Non-Af > 60 (>60) 11/01/21 05:00 Glucose 195 mg/dL (65-99) H 11/01/21 05:00 POC Glucose (mg/dL) 236 mg/dL (65-99) H 11/01/21 11:12 Calcium 8.8 mg/dL (8.5-10.1) 11/01/21 05:00 Corrected Calcium TNP 11/01/21 05:00 Magnesium 1.4 mg/dL (1.7-2.9) L 11/01/21 05:00 Total Bilirubin 0.40 mg/dL (0.2-1.0) 11/01/21 05:00 AST 8 Units/L (15-37) L 11/01/21 05:00 ALT 10 Units/L (12-78) L 11/01/21 05:00 Alkaline Phosphatase 69 Units/L (46-116) 11/01/21 05:00 Creatine Kinase 61 Units/L (26-192) 11/01/21 11:16 Troponin I High Sens 127.2 ng/L (4.0-60.0) H* 11/01/21 11:16 Total Protein 7.4 g/dL (6.4-8.2) 11/01/21 05:00 Albumin 3.4 g/dL (3.4-5.0) 11/01/21 05:00 Globulin 4.0 g/dL (2.5-4.5) 11/01/21 05:00 Albumin/Globulin Ratio 0.9 Ratio (1.1-2.1) L 11/01/21 05:00 Triglycerides 54 mg/dL (0-150) 11/01/21 05:00 Cholesterol 112 mg/dL (0-200) 11/01/21 05:00 LDL Cholesterol, Calc 64 mg/dL (0-100) 11/01/21 05:00 HDL Cholesterol 37 mg/dL (40-60) L 11/01/21 05:00 Cholesterol/HDL Ratio 3.0 (0.0-5.0) 11/01/21 05:00 Specimen Type Clean catch urine 11/01/21 06:05 Urine Color Bloody (YELLOW) 11/01/21 06:05 Urine Appearance Slightly hazy (CLEAR) 11/01/21 06:05 Urine pH 6.0 (5.0 - 8.0) 11/01/21 06:05 Ur Specific [place] 1.010 (1.000-1.030) 11/01/21 06:05 Urine Protein 3+ (NEGATIVE) 11/01/21 06:05 Urine Glucose (UA) Negative (NEGATIVE) 11/01/21 06:05 Urine Ketones Negative (NEGATIVE) 11/01/21 06:05 Urine Blood 5+ (NEGATIVE) 11/01/21 06:05 Urine Nitrite Negative (NEGATIVE) 11/01/21 06:05 Urine Bilirubin Negative (NEGATIVE) 11/01/21 06:05 Urine Urobilinogen Normal (NORMAL) 11/01/21 06:05 Ur Leukocyte Esterase 2+ (NEGATIVE) 11/01/21 06:05 Urine RBC Tntc /HPF (0-3) A 11/01/21 06:05 Urine WBC 3-5 /HPF (0-5) 11/01/21 06:05 Ur Squamous Epith Cells Rare /HPF (NEGATIVE) 11/01/21 06:05 Urine Bacteria Trace /HPF (NEGATIVE) 11/01/21 06:05 Ur Culture Indicated? No/not indicated 11/01/21 06:05 SARS-CoV-2 (PCR) Negative (NEGATIVE) 11/01/21 02:03 Review of Systems Constitutional: Other (Headache) Eyes: No Symptoms Reported ENT: No Symptoms Reported Respiratory: No Symptoms Reported Cardiovascular: Chest Pain Gastrointestinal: No Symptoms Reported Genitourinary: No Symptoms Reported Musculoskeletal: No Symptoms Reported Skin: No Symptoms Reported Neurological: No Symptoms Reported Physical Exam Vital Signs: Temperature 98.9 F Pulse Rate [Apical] 78 Pulse Rate 85 Respiratory Rate 12 Blood Pressure [Left Arm] 136/65 Blood Pressure [Right Arm] 156/78 Blood Pressure 136/81 O2 Sat by Pulse Oximetry 100 Oriented: Normal Eyes: Normal Ear: Normal Nose: Normal Throat: Normal Respiratory: Clear Throughout Cardiovascular: Normal : Normal Auscultation: Bowel Sounds: Normal Palpation: Normal Tenderness: Normal Skin: Normal Musculoskeletal: Normal Psychiatric: Normal Mood Description: Calm and Appropriate Affect: Normal Speech Pattern: Clear and Appropriate Assessment/Plan (1) Hypertensive emergency: Status: Acute Plan: Dry Molder and adjust blood pressure medications (2) Elevated troponin: Status: Acute (3) Hypokalemia: Status: Acute Review H&P Reviewed: Yes Patient was examined?: Yes
[2021-11-01] MEDS ORDERED: SNACK - Diabetic Appropriate PO SCH (20:00)
[2021-11-01] MEDS: CATAPRES TAB 0.2 MG PO SCH (20:46)
[2021-11-01] MEDS ORDERED: LEVEMIR SC SCH ×2 (21:00)
[2021-11-01] MEDS ORDERED: LIPITOR TAB 80 MG PO SCH (21:00)
[2021-11-02 05:55] LABS: BASOPHILS # (AUTO) 0.1 X10^3/uL (0.0-0.1); BASOPHILS % (AUTO) 0.8 % (0.2-1.0); EOSINOPHILS # (AUTO) 0.3 x10^3/uL (0.0-0.2); EOSINOPHILS % (AUTO) 3.6 % (0.9-2.9); HEMATOCRIT 32.6 % (36.0-47.0); HEMOGLOBIN 10.4 g/dL (12.0-16.0); LYMPHOCYTES # (AUTO) 2.2 X10^3/uL (1.3-2.9); LYMPHOCYTES % (AUTO) 29.8 % (21.0-51.0); MEAN CORPUSCULAR HEMOGLOBIN 23.8 pg (27.0-34.0); MEAN CORPUSCULAR HGB CONC 31.8 g/dL (33.0-35.0); MEAN CORPUSCULAR VOLUME 74.7 fL (80.0-100.0); MEAN PLATELET VOLUME 8.3 fL (7.4-11.0); MONOCYTES # (AUTO) 0.4 x10^3/uL (0.3-0.8); NEUTROPHILS # (AUTO) 4.6 x10^3/uL (2.2-4.8); NEUTROPHILS % (AUTO) 60.8 % (42.0-75.0); RED BLOOD COUNT 4.36 X10^6/uL (3.5-5.4); RED CELL DISTRIBUTION WIDTH 18.1 % (11.6-16.5); WHITE BLOOD COUNT 7.5 X10^3/uL (3.6-10.0)
[2021-11-02] MEDS: NovoLIN R (or HumuLIN R) SUBCUT PRN (05:56)
[2021-11-02 06:16] LABS: ALANINE AMINOTRANSFERASE 11 Units/L (12-78); ALBUMIN 3.2 g/dL (3.4-5.0); ALKALINE PHOSPHATASE 65 Units/L (46-116); ASPARTATE AMINO TRANSFERASE 7 Units/L (15-37); BLOOD UREA NITROGEN 15 mg/dL (7-18); CALCIUM 8.8 mg/dL (8.5-10.1); CARBON DIOXIDE 28.5 mmol/L (21-32); CHLORIDE 102 mmol/L (98-107); COR CA(FOR HYPOALB) 9.4 mg/dL (8.5-10.1); COR NA(FOR HYPERGLY) 140 mmol/L (136-145); CREATININE 0.72 mg/dL (0.55-1.02); MAGNESIUM 2.1 mg/dL (1.7-2.9); SODIUM 139 mmol/L (136-145); TOTAL PROTEIN 7.3 g/dL (6.4-8.2); eGFR NON BLACK RACES > 60 (>60)
[2021-11-02 06:26] LABS: ANISOCYTOSIS SLIGHT; HYPOCHROMASIA SLIGHT; MICROCYTOSIS SLIGHT; PLATELET MORPHOLOGY COMMENT NORMAL (NORMAL)
[2021-11-02 06:27] LABS: OVALOCYTES SLIGHT; TARGET CELLS SLIGHT
[2021-11-02] MEDS ORDERED: GLUCOPHAGE ONE (08:21)
[2021-11-02] MEDS: COZAAR PO SCH (08:27)
[2021-11-02] MEDS: ALDACTONE TAB 25 MG PO SCH (08:27)
[2021-11-02] MEDS: COREG TAB 25 MG PO SCH (08:27)
[2021-11-02] MEDS: CATAPRES TAB 0.2 MG PO SCH (08:27)
[2021-11-02] MEDS: GLUCOPHAGE PO SCH (08:28)
[2021-11-02] MEDS: ELIQUIS PO SCH (08:28)
[2021-11-02] MEDS: FERROUS GLUCONATE PO SCH (08:28)
[2021-11-02] MEDS: IMDUR PO SCH (08:29)
[2021-11-02] MEDS ORDERED: ZOFRAN INJ 4 MG VIAL IVP ONE (15:56)
[2021-11-02] MEDS ORDERED: ZOFRAN INJ 4 MG VIAL ONE (15:57)
[2021-11-02 16:41] VITALS: BP 135/69
--- NOTE | 2021-11-03 16:46 | W.DIS.FURT ---
Summary of Discharge Admission Diagnosis Patient Problems (Updated 11/01/21 @ 01:38 by SILVIA HEALY) Hypertensive emergency (Acute) I16.1 Elevated troponin (Acute) R77.8 Chest pain (Acute) R07.9 Vital Signs: Vital Signs (72 hours) 10/31/21 23:57 11/01/21 00:28 11/01/21 00:30 Temperature 98.2 F Pulse Rate 101 H 89 Pulse Rate [Apical] Respiratory Rate 20 21 Blood Pressure 264/143 201/105 Blood Pressure [Left Arm] O2 Sat by Pulse Oximetry 98 99 Oxygen Delivery Method Room Air Oxygen Flow Rate FIO2% 11/01/21 00:30 11/01/21 00:45 11/01/21 01:00 Temperature Pulse Rate 92 H 91 H Pulse Rate [Apical] Respiratory Rate 24 15 Blood Pressure 205/109 Blood Pressure [Left Arm] O2 Sat by Pulse Oximetry 98 99 Oxygen Delivery Method Oxygen Flow Rate FIO2% 11/01/21 01:00 11/01/21 01:15 11/01/21 01:30 Temperature Pulse Rate 85 86 83 Pulse Rate [Apical] Respiratory Rate 15 15 16 Blood Pressure Blood Pressure [Left Arm] O2 Sat by Pulse Oximetry 98 100 98 Oxygen Delivery Method Oxygen Flow Rate FIO2% 11/01/21 01:31 11/01/21 01:31 11/01/21 01:45 Temperature Pulse Rate 84 84 Pulse Rate [Apical] Respiratory Rate 16 23 Blood Pressure 195/108 Blood Pressure [Left Arm] O2 Sat by Pulse Oximetry 99 99 Oxygen Delivery Method Oxygen Flow Rate FIO2% 11/01/21 01:52 11/01/21 01:52 11/01/21 02:00 Temperature Pulse Rate 82 Pulse Rate [Apical] Respiratory Rate 16 Blood Pressure 142/81 136/81 Blood Pressure [Left Arm] O2 Sat by Pulse Oximetry 99 Oxygen Delivery Method Oxygen Flow Rate FIO2% 11/01/21 02:00 11/01/21 04:00 11/01/21 03:00 Temperature 98.5 F Pulse Rate 85 Pulse Rate [Apical] 87 82 Respiratory Rate 25 H 20 17 Blood Pressure Blood Pressure [Left Arm] 182/92 168/92 O2 Sat by Pulse Oximetry 99 97 99 Oxygen Delivery Method Nasal Cannula Nasal Cannula Oxygen Flow Rate FIO2% 11/01/21 02:45 11/01/21 03:30 11/01/21 05:00 Temperature Pulse Rate Pulse Rate [Apical] 79 Respiratory Rate 13 Blood Pressure Blood Pressure [Left Arm] 183/97 O2 Sat by Pulse Oximetry 100 Oxygen Delivery Method Room Air Nasal Cannula Nasal Cannula Oxygen Flow Rate 2 FIO2% 28 11/01/21 05:20 11/01/21 05:30 11/01/21 05:40 Temperature Pulse Rate Pulse Rate [Apical] 75 77 79 Respiratory Rate 13 13 15 Blood Pressure Blood Pressure [Left Arm] 172/86 164/88 162/90 O2 Sat by Pulse Oximetry 100 99 100 Oxygen Delivery Method Nasal Cannula Nasal Cannula Nasal Cannula Oxygen Flow Rate FIO2% 11/01/21 05:50 11/01/21 06:02 11/01/21 06:10 Temperature Pulse Rate Pulse Rate [Apical] 74 82 83 Respiratory Rate 13 19 15 Blood Pressure Blood Pressure [Left Arm] 166/95 180/85 180/85 O2 Sat by Pulse Oximetry 100 96 99 Oxygen Delivery Method Nasal Cannula Nasal Cannula Nasal Cannula Oxygen Flow Rate FIO2% 11/01/21 06:10 11/01/21 06:20 11/01/21 06:30 Temperature Pulse Rate Pulse Rate [Apical] 83 79 75 Respiratory Rate 15 15 12 Blood Pressure Blood Pressure [Left Arm] 180/85 166/79 159/85 O2 Sat by Pulse Oximetry 99 100 99 Oxygen Delivery Method Nasal Cannula Nasal Cannula Nasal Cannula Oxygen Flow Rate FIO2% 11/01/21 06:40 11/01/21 07:00 11/01/21 07:10 Temperature Pulse Rate Pulse Rate [Apical] 74 79 86 Respiratory Rate 12 13 14 Blood Pressure Blood Pressure [Left Arm] 157/89 161/88 158/87 O2 Sat by Pulse Oximetry 100 99 99 Oxygen Delivery Method Nasal Cannula Nasal Cannula Nasal Cannula Oxygen Flow Rate FIO2% 11/01/21 08:00 11/01/21 07:00 11/01/21 08:36 Temperature 98.0 F Pulse Rate Pulse Rate [Apical] 84 Respiratory Rate 17 Blood Pressure Blood Pressure [Left Arm] 154/87 O2 Sat by Pulse Oximetry 100 Oxygen Delivery Method Nasal Cannula Nasal Cannula Nasal Cannula Oxygen Flow Rate 2 2 FIO2% 11/01/21 09:00 11/01/21 10:00 11/01/21 11:00 Temperature Pulse Rate Pulse Rate [Apical] 88 87 87 Respiratory Rate 15 19 20 Blood Pressure Blood Pressure [Left Arm] 152/83 135/83 138/78 O2 Sat by Pulse Oximetry 99 98 98 Oxygen Delivery Method Nasal Cannula Nasal Cannula Nasal Cannula Oxygen Flow Rate FIO2% 11/01/21 12:00 11/01/21 13:00 11/01/21 14:00 Temperature 98.9 F Pulse Rate Pulse Rate [Apical] 78 95 H 78 Respiratory Rate 12 16 13 Blood Pressure Blood Pressure [Left Arm] 136/65 124/63 91/54 O2 Sat by Pulse Oximetry 100 99 98 Oxygen Delivery Method Nasal Cannula Nasal Cannula Nasal Cannula Oxygen Flow Rate FIO2% 11/01/21 15:00 11/01/21 16:00 11/01/21 17:00 Temperature 98.0 F Pulse Rate Pulse Rate [Apical] 77 80 92 H Respiratory Rate 14 13 22 Blood Pressure Blood Pressure [Left Arm] 98/55 105/68 116/66 O2 Sat by Pulse Oximetry 98 100 97 Oxygen Delivery Method Nasal Cannula Nasal Cannula Nasal Cannula Oxygen Flow Rate FIO2% 11/01/21 18:00 11/01/21 19:00 11/01/21 19:00 Temperature Pulse Rate Pulse Rate [Apical] 92 H 87 Respiratory Rate 21 17 Blood Pressure Blood Pressure [Left Arm] 111/58 120/70 O2 Sat by Pulse Oximetry 98 100 Oxygen Delivery Method Nasal Cannula Nasal Cannula Nasal Cannula Oxygen Flow Rate 2 FIO2% 11/01/21 20:10 11/01/21 21:00 11/01/21 20:00 Temperature 98.4 F Pulse Rate Pulse Rate [Apical] 88 83 Respiratory Rate 19 17 Blood Pressure Blood Pressure [Left Arm] 143/82 131/79 O2 Sat by Pulse Oximetry 100 99 Oxygen Delivery Method Nasal Cannula Nasal Cannula Nasal Cannula Oxygen Flow Rate 2 FIO2% 28 11/01/21 22:00 11/01/21 23:00 11/02/21 00:00 Temperature 98.5 F Pulse Rate Pulse Rate [Apical] 86 70 66 Respiratory Rate 15 13 13 Blood Pressure Blood Pressure [Left Arm] 133/73 106/62 97/51 O2 Sat by Pulse Oximetry 100 98 100 Oxygen Delivery Method Nasal Cannula Nasal Cannula Nasal Cannula Oxygen Flow Rate FIO2% 11/02/21 01:00 11/02/21 02:00 11/02/21 04:00 Temperature 98.1 F Pulse Rate Pulse Rate [Apical] 64 65 67 Respiratory Rate 22 14 15 Blood Pressure Blood Pressure [Left Arm] 102/63 102/61 114/57 O2 Sat by Pulse Oximetry 100 99 100 Oxygen Delivery Method Nasal Cannula Nasal Cannula Nasal Cannula Oxygen Flow Rate FIO2% 11/02/21 03:00 11/02/21 05:00 11/02/21 06:00 Temperature Pulse Rate Pulse Rate [Apical] 63 70 76 Respiratory Rate 24 12 14 Blood Pressure Blood Pressure [Left Arm] 131/64 127/63 136/83 O2 Sat by Pulse Oximetry 100 100 100 Oxygen Delivery Method Nasal Cannula Nasal Cannula Nasal Cannula Oxygen Flow Rate FIO2% 11/02/21 07:00 11/02/21 07:19 11/02/21 07:30 Temperature Pulse Rate 74 65 Pulse Rate [Apical] Respiratory Rate 13 12 Blood Pressure Blood Pressure [Left Arm] O2 Sat by Pulse Oximetry 100 100 Oxygen Delivery Method Room Air Oxygen Flow Rate FIO2% 11/02/21 07:45 11/02/21 08:00 11/02/21 08:00 Temperature 98.1 F Pulse Rate 86 79 Pulse Rate [Apical] Respiratory Rate 24 17 Blood Pressure 148/70 Blood Pressure [Left Arm] O2 Sat by Pulse Oximetry 100 100 Oxygen Delivery Method Oxygen Flow Rate FIO2% 11/02/21 08:15 11/02/21 08:30 11/02/21 08:45 Temperature Pulse Rate 79 80 75 Pulse Rate [Apical] Respiratory Rate 13 13 12 Blood Pressure Blood Pressure [Left Arm] O2 Sat by Pulse Oximetry 100 100 100 Oxygen Delivery Method Oxygen Flow Rate FIO2% 11/02/21 08:25 11/02/21 09:00 11/02/21 09:01 Temperature Pulse Rate 73 Pulse Rate [Apical] Respiratory Rate 15 Blood Pressure 133/60 Blood Pressure [Left Arm] O2 Sat by Pulse Oximetry 99 Oxygen Delivery Method Nasal Cannula Oxygen Flow Rate 2 FIO2% 11/02/21 09:01 11/02/21 09:01 11/02/21 09:15 Temperature Pulse Rate 72 71 Pulse Rate [Apical] Respiratory Rate 13 26 H Blood Pressure 133/60 Blood Pressure [Left Arm] O2 Sat by Pulse Oximetry 100 100 Oxygen Delivery Method Oxygen Flow Rate FIO2% 11/02/21 09:30 11/02/21 09:45 11/02/21 10:00 Temperature Pulse Rate 75 78 Pulse Rate [Apical] Respiratory Rate 16 14 Blood Pressure 148/62 Blood Pressure [Left Arm] O2 Sat by Pulse Oximetry 100 100 Oxygen Delivery Method Oxygen Flow Rate FIO2% 11/02/21 10:00 11/02/21 10:15 11/02/21 10:30 Temperature Pulse Rate 80 81 79 Pulse Rate [Apical] Respiratory Rate 16 26 H 19 Blood Pressure Blood Pressure [Left Arm] O2 Sat by Pulse Oximetry 100 99 100 Oxygen Delivery Method Oxygen Flow Rate FIO2% 11/02/21 10:45 11/02/21 11:00 11/02/21 11:00 Temperature Pulse Rate 84 80 Pulse Rate [Apical] Respiratory Rate 16 13 Blood Pressure 145/77 Blood Pressure [Left Arm] O2 Sat by Pulse Oximetry 100 99 Oxygen Delivery Method Oxygen Flow Rate FIO2% 11/02/21 11:15 11/02/21 11:30 11/02/21 11:45 Temperature Pulse Rate 84 83 87 Pulse Rate [Apical] Respiratory Rate 33 H 19 35 H Blood Pressure Blood Pressure [Left Arm] O2 Sat by Pulse Oximetry 98 99 99 Oxygen Delivery Method Oxygen Flow Rate FIO2% 11/02/21 12:00 11/02/21 12:01 11/02/21 12:01 Temperature 98.7 F Pulse Rate 79 81 Pulse Rate [Apical] Respiratory Rate 16 15 Blood Pressure 122/61 Blood Pressure [Left Arm] O2 Sat by Pulse Oximetry 100 98 Oxygen Delivery Method Oxygen Flow Rate FIO2% 11/02/21 12:15 11/02/21 12:30 11/02/21 12:45 Temperature Pulse Rate 80 94 H 97 H Pulse Rate [Apical] Respiratory Rate 15 23 42 H Blood Pressure Blood Pressure [Left Arm] O2 Sat by Pulse Oximetry 99 99 98 Oxygen Delivery Method Oxygen Flow Rate FIO2% 11/02/21 13:00 11/02/21 13:00 11/02/21 13:15 Temperature Pulse Rate 92 H 85 Pulse Rate [Apical] Respiratory Rate 18 10 L Blood Pressure 125/62 Blood Pressure [Left Arm] O2 Sat by Pulse Oximetry 94 L 99 Oxygen Delivery Method Oxygen Flow Rate FIO2% 11/02/21 13:30 11/02/21 13:45 11/02/21 14:00 Temperature Pulse Rate 80 79 79 Pulse Rate [Apical] Respiratory Rate 14 14 14 Blood Pressure Blood Pressure [Left Arm] O2 Sat by Pulse Oximetry 99 100 98 Oxygen Delivery Method Oxygen Flow Rate FIO2% 11/02/21 14:01 11/02/21 14:01 11/02/21 14:15 Temperature Pulse Rate 78 77 Pulse Rate [Apical] Respiratory Rate 14 12 Blood Pressure 108/58 Blood Pressure [Left Arm] O2 Sat by Pulse Oximetry 99 98 Oxygen Delivery Method Oxygen Flow Rate FIO2% 11/02/21 14:33 11/02/21 14:45 11/02/21 15:00 Temperature Pulse Rate 96 H 87 Pulse Rate [Apical] Respiratory Rate 15 Blood Pressure 151/75 Blood Pressure [Left Arm] O2 Sat by Pulse Oximetry 97 99 Oxygen Delivery Method Oxygen Flow Rate FIO2% 11/02/21 15:00 11/02/21 15:15 11/02/21 15:30 Temperature Pulse Rate 82 79 91 H Pulse Rate [Apical] Respiratory Rate 14 12 16 Blood Pressure Blood Pressure [Left Arm] O2 Sat by Pulse Oximetry 99 99 100 Oxygen Delivery Method Oxygen Flow Rate FIO2% 11/02/21 15:51 11/02/21 16:00 11/02/21 16:00 Temperature Pulse Rate 91 H 81 Pulse Rate [Apical] Respiratory Rate 19 Blood Pressure 135/69 Blood Pressure [Left Arm] O2 Sat by Pulse Oximetry 96 Oxygen Delivery Method Oxygen Flow Rate FIO2% 11/02/21 16:15 11/02/21 16:30 Temperature Pulse Rate 79 78 Pulse Rate [Apical] Respiratory Rate 13 13 Blood Pressure Blood Pressure [Left Arm] O2 Sat by Pulse Oximetry 96 97 Oxygen Delivery Method Oxygen Flow Rate FIO2% Labs: Laboratory Last Values WBC 7.5 X10^3/uL (3.6-10.0) 11/02/21 05:20 RBC 4.36 X10^6/uL (3.5-5.4) 11/02/21 05:20 Hgb 10.4 g/dL (12.0-16.0) L 11/02/21 05:20 Hct 32.6 % (36.0-47.0) L 11/02/21 05:20 MCV 74.7 fL (80.0-100.0) L 11/02/21 05:20 MCH 23.8 pg (27.0-34.0) L 11/02/21 05:20 MCHC 31.8 g/dL (33.0-35.0) L 11/02/21 05:20 RDW 18.1 % (11.6-16.5) H 11/02/21 05:20 Plt Count 398 X10^3/uL (150.0-450.0) 11/02/21 05:20 Plt Count Comment Adequate (ADEQUATE) 11/02/21 05:20 MPV 8.3 fL (7.4-11.0) 11/02/21 05:20 Neut % (Auto) 60.8 % (42.0-75.0) 11/02/21 05:20 Lymph % (Auto) 29.8 % (21.0-51.0) 11/02/21 05:20 Day % (Auto) 5.0 % (0.0-13.0) 11/02/21 05:20 Eos % (Auto) 3.6 % (0.9-2.9) H 11/02/21 05:20 Baso % (Auto) 0.8 % (0.2-1.0) 11/02/21 05:20 Neut # (Auto) 4.6 x10^3/uL (2.2-4.8) 11/02/21 05:20 Lymph # (Auto) 2.2 X10^3/uL (1.3-2.9) 11/02/21 05:20 Day # (Auto) 0.4 x10^3/uL (0.3-0.8) 11/02/21 05:20 Eos # (Auto) 0.3 x10^3/uL (0.0-0.2) H 11/02/21 05:20 Baso # (Auto) 0.1 X10^3/uL (0.0-0.1) 11/02/21 05:20 Absolute Nucleated RBC 0.0 /100WBC 11/02/21 05:20 Plt Morphology Comment Normal (NORMAL) 11/02/21 05:20 RBC Morphology Abnormal (NORMAL) A 11/02/21 05:20 Hypochromasia Slight A 11/02/21 05:20 Anisocytosis Slight A 11/02/21 05:20 Microcytosis Slight A 11/02/21 05:20 Target Cells Slight A 11/02/21 05:20 Ovalocytes Slight A 11/02/21 05:20 Sodium 139 mmol/L (136-145) 11/02/21 05:20 Corrected Sodium 140 mmol/L (136-145) 11/02/21 05:20 Potassium 3.9 mmol/L (3.5-5.1) 11/02/21 05:20 Chloride 102 mmol/L (98-107) 11/02/21 05:20 Carbon Dioxide 28.5 mmol/L (21-32) 11/02/21 05:20 BUN 15 mg/dL (7-18) 11/02/21 05:20 Creatinine 0.72 mg/dL (0.55-1.02) 11/02/21 05:20 Est GFR (MDRD) Af Amer > 60 (>60) 11/02/21 05:20 Est GFR (MDRD) Non-Af > 60 (>60) 11/02/21 05:20 Glucose 148 mg/dL (65-99) H 11/02/21 05:20 POC Glucose (mg/dL) 155 mg/dL (65-99) H 11/02/21 15:53 Calcium 8.8 mg/dL (8.5-10.1) 11/02/21 05:20 Corrected Calcium 9.4 mg/dL (8.5-10.1) 11/02/21 05:20 Magnesium 2.1 mg/dL (1.7-2.9) 11/02/21 05:20 Total Bilirubin 0.60 mg/dL (0.2-1.0) 11/02/21 05:20 AST 7 Units/L (15-37) L 11/02/21 05:20 ALT 11 Units/L (12-78) L 11/02/21 05:20 Alkaline Phosphatase 65 Units/L (46-116) 11/02/21 05:20 Creatine Kinase 61 Units/L (26-192) 11/01/21 11:16 Troponin I High Sens 127.2 ng/L (4.0-60.0) H* 11/01/21 11:16 Total Protein 7.3 g/dL (6.4-8.2) 11/02/21 05:20 Albumin 3.2 g/dL (3.4-5.0) L 11/02/21 05:20 Globulin 4.1 g/dL (2.5-4.5) 11/02/21 05:20 Albumin/Globulin Ratio 0.8 Ratio (1.1-2.1) L 11/02/21 05:20 Triglycerides 54 mg/dL (0-150) 11/01/21 05:00 Cholesterol 112 mg/dL (0-200) 11/01/21 05:00 LDL Cholesterol, Calc 64 mg/dL (0-100) 11/01/21 05:00 HDL Cholesterol 37 mg/dL (40-60) L 11/01/21 05:00 Cholesterol/HDL Ratio 3.0 (0.0-5.0) 11/01/21 05:00 Specimen Type Clean catch urine 11/01/21 06:05 Urine Color Bloody (YELLOW) 11/01/21 06:05 Urine Appearance Slightly hazy (CLEAR) 11/01/21 06:05 Urine pH 6.0 (5.0 - 8.0) 11/01/21 06:05 Ur Specific [place] 1.010 (1.000-1.030) 11/01/21 06:05 Urine Protein 3+ (NEGATIVE) 11/01/21 06:05 Urine Glucose (UA) Negative (NEGATIVE) 11/01/21 06:05 Urine Ketones Negative (NEGATIVE) 11/01/21 06:05 Urine Blood 5+ (NEGATIVE) 11/01/21 06:05 Urine Nitrite Negative (NEGATIVE) 11/01/21 06:05 Urine Bilirubin Negative (NEGATIVE) 11/01/21 06:05 Urine Urobilinogen Normal (NORMAL) 11/01/21 06:05 Ur Leukocyte Esterase 2+ (NEGATIVE) 11/01/21 06:05 Urine RBC Tntc /HPF (0-3) A 11/01/21 06:05 Urine WBC 3-5 /HPF (0-5) 11/01/21 06:05 Ur Squamous Epith Cells Rare /HPF (NEGATIVE) 11/01/21 06:05 Urine Bacteria Trace /HPF (NEGATIVE) 11/01/21 06:05 Ur Culture Indicated? No/not indicated 11/01/21 06:05 SARS-CoV-2 (PCR) Negative (NEGATIVE) 11/01/21 02:03 Reason For Visit: HYPERTENSIVE EMERGENCY, ELEVATED TROPONIN, CHEST Discharge Diagnosis All Active Problems (Updated 11/01/21 @ 01:38 by SILVIA HEALY) Contusion of right eye (Acute) Non-ST elevation MD (NSTEMI) (Acute) Hypertension (Acute) CHF (congestive heart failure) (Acute) Hypokalemia (Acute) H/O microcytic hypochromic anemia (Acute) Hypertensive emergency (Acute) Anemia (Acute) Acute non-ST elevation myocardial infarction (NSTEMI) (Acute) Pulmonary embolism (Acute) Menorrhagia (Acute) Anemia (Acute) Non-ST elevated myocardial infarction (non-STEMI) (Acute) Congestive heart failure (Acute) Non-ST elevation (NSTEMI) myocardial infarction (Acute) Hypokalemia (Acute) Anemia (Acute) Hx of pulmonary embolus (Acute) DM2 (diabetes mellitus, type 2) (Acute) Hypertensive emergency (Acute) Elevated troponin (Acute) Chest pain (Acute) Diabetes (Acute) Iron deficiency anemia (Acute) History of anemia (Chronic) Hypertension (Acute) History of MD (myocardial infarction) (Chronic) History of angina (Chronic) Hx of coronary artery disease (Chronic) Hypokalemia (Acute) Symptomatic anemia (Acute) Hyperglycemia (Chronic) Essential hypertension (Chronic) Cardiomegaly (Acute) Hypokalemia (Acute) Hypertension (Acute) Accelerated essential hypertension (Acute) Acute on chronic anemia (Acute) Anemia (Acute) Dizziness (Acute) Near syncope (Acute) Plan of Treatment: Continue with present treatment and follow up plan. Pt is to keep follow up appointment as instructed and take medications as ordered. Discharge Medications Discharge Medications: No Known Drug Allergies Allergy (Verified 04/27/21 12:18) CONTINUE taking the following medications losartan 50 mg tablet 100 mg PO QDAY 11/01/21 [History] spironolactone 25 mg tablet 25 mg PO QDAY 11/01/21 [History] Discharge Plan Discharge Plan Patient Disposition: [facility] Condition: Stable Health Concerns: Post Hospitalization: new medications and changes needed to prevent readmission or further decline. Pt educated and given instructions on all concerns. Plan of Treatment: Continue with present treatment and follow up plan. Pt is to keep follow up appointment as instructed and take medications as ordered. Prescriptions: No Action Levemir FlexTouch U-100 Insuln 100 unit/mL (3 mL) Insulin Pen 30 unit SUBCUT QHS carvedilol 25 mg Tablet 25 mg PO BID ferrous sulfate [iron] 325 mg (65 mg iron) tablet 325 mg PO BID atorvastatin 80 mg Tablet 80 mg PO QHS isosorbide mononitrate 30 mg Tablet Extended Release 24 Hr 30 mg PO QAM Eliquis 5 mg Tablet 5 mg PO BID Label Comments: unknown dose metformin 1,000 mg tablet 1,000 mg PO BID 30 Days Qty: 60 1RF losartan 50 mg Tablet 100 mg PO QDAY spironolactone 25 mg Tablet 25 mg PO QDAY Orders to Discharge Patient Discharge Orders: Transfer (Routine); Ordered 11/02/21 Ordered By: Bob Garrido Follow ups/Referrals Follow ups/Referrals: Shamar Diaz [Primary Care Provider] - 1 WEEK NFD,None [STAFF PHYSICIAN] - 3 days Instructions Stand Alone Forms: Excuse From Work or School, Precautions for COVID19, [facility], Patient Portal, Social Distancing
== END 2021-11-02 17:02 | disposition short-term general hospital (02) ==
LOC: SUPCPDRO → ICU 23:56 → ER 23:56 → ICU 11-01 02:20
PROVIDERS: ADMIT Obstetrics & Gynecology Obstetrics; ATTEND Family Medicine
DX: Z86.79 Personal history of other diseases of the circulatory system; Z20.822 Contact with and (suspected) exposure to COVID-19; I16.1 Hypertensive emergency; E78.5 Hyperlipidemia, unspecified; I50.9 Heart failure, unspecified; E87.6 Hypokalemia; K21.9 Gastro-esophageal reflux disease without esophagitis; Z79.01 Long term (current) use of anticoagulants; R94.31 Abnormal electrocardiogram [ECG] [EKG]; M19.90 Unspecified osteoarthritis, unspecified site; D64.9 Anemia, unspecified; Z86.711 Personal history of pulmonary embolism; R74.8 Abnormal levels of other serum enzymes; I25.2 Old myocardial infarction; Z87.891 Personal history of nicotine dependence; I25.118 Atherosclerotic heart disease of native coronary artery with other forms of angina pectoris; E11.65 Type 2 diabetes mellitus with hyperglycemia; R51.9 Headache, unspecified; F41.9 Anxiety disorder, unspecified